=== PATIENT | female | born 1960 | race Caucasian/White ===

== ENCOUNTER 2019-06-01 14:02 | Emergency (ER) | payer SELFPAY ==
--- NOTE | 2019-06-01 14:40 | ER Document Report ---
HPI - HPI Patient complains to provider of: L knee swelling/pain Time Seen by Provider: 06/01/19 14:25 Pain Level: 3 Context: 58-year-old female with hypertension presents to the emergency department with chief complaint of left knee swelling x4 weeks. Patient states that she has history of arthritis and she attributed it to that but the swelling has not subsided with conservative measures like rest, ice, compression, elevation, and taking aspirin. Patient is able to move her knee and can bear weight on it. Patient denies history of recent surgery, prolonged immobilization, posterior pain in the calf, blood clots, cancer, varicose veins, or pitting edema. Denies fevers or chills, nausea or vomiting, acute shortness of breath or chest pain. No other complaints - REPRODUCTIVE Reproductive: DENIES: : - DERM Skin Color: Normal Past Medical History - Social History Smoking Status: Never Smoker Chew tobacco use (# tins/day): No Frequency of alcohol use: Rare Drug Abuse: None Family History: None - adopted but know mom was diabetic, DM Patient has suicidal ideation: No Patient has homicidal ideation: No - Past Medical History Cardiac Medical History: Reports: Hx Hypertension Denies: Hx Coronary Artery Disease Pulmonary Medical History: Denies: Hx Asthma Endocrine Medical History: Denies: Hx Diabetes Mellitus Type 1, Hx Diabetes Mellitus Type 2 Renal/ Medical History: Denies: Hx Kidney Stones, Hx Peritoneal Dialysis GI Medical History: Reports: Hx Diverticulitis, Hx Gastroesophageal Reflux Disease Musculoskeletal Medical History: Reports Hx Musculoskeletal Deformity Past Surgical History: Reports: Hx Abdominal Surgery - diverticulitis, with 6 " of colon removed, Hx Appendectomy - same time as above, Hx Colostomy - and re versal, Hx Tubal Ligation - Immunizations Immunizations up to date: Yes Hx Diphtheria, Pertussis, Tetanus Vaccination: Yes Vertical Provider Document - CONSTITUTIONAL Notes: PHYSICAL EXAMINATION: Reviewed vital signs and charting by RN GENERAL: Alert, interacts well. No acute distress. HEAD: Normocephalic, atraumatic. EYES: Pupils equal and round. Extraocular movements intact. ENT: Oral mucosa moist, tongue midline. NECK: Full range of motion. Trachea midline. LUNGS: Clear to auscultation bilaterally, no wheezes, rales, or rhonchi. No respiratory distress. HEART: Regular rate and rhythm. No murmur ABDOMEN: soft, non-tender. No distention. Bowel sounds present EXTREMITIES: Moves all 4 extremities spontaneously. Mild nonpitting edema of the left knee, tenderness to palpation over the area of the medial meniscus and the medial joint line, no erythema, very mild warmth, 5/5 strength with knee extension and flexion, full range of motion PSYCH: Normal affect, normal mood. SKIN: Warm, dry, normal turgor. No rashes or lesions noted. - INFECTION CONTROL TRAVEL OUTSIDE OF THE [place] IN LAST 30 DAYS: No Course - Re-evaluation Re-evalutation: 06/01/19 14:44 Patient with history of sciatica on her left side most likely compensating on her right side causing inflammation and probable bursitis. Wells score for DVT -2. No evidence of septic arthritis as patient is able to move knee and is afebrile. Plan is to get x-ray of the left knee. Patient initially hypertensive triple over 111 91/115, repeat blood pressure 157/110. Patient with known hypertension but not currently being treated. No evidence of any endorgan damage on clinical exam. 06/01/19 14:45 06/01/19 15:26 X-ray showed mild tricompartmental arthrosis with a small joint effusion, no evidence of fracture dislocation. Will discuss results with patient and [facility]. She is stable for discharge. - Vital Signs Vital signs: Temp Pulse Resp BP Pulse Ox 98.1 F 122 H 18 191/127 H 97 06/01/19 14:09 06/01/19 14:09 06/01/19 14:09 06/01/19 14:09 06/01/19 14:09 Discharge - Discharge Clinical Impression: Knee effusion, right, Arthrosis Condition: Good Disposition: HOME, SELF-CARE Additional Instructions: You are seen in the emergency department this afternoon for a swollen knee. X- ray did not show any patella dislocation, fracture or any other dislocation. Did show a condition called arthrosis which is another name for osteoarthritis. Also had a very small joint effusion which is fluid in the bursa surrounding your knees. For now you can do RICE treatment and take ibuprofen 600 mg every 6 hours and/or Tylenol 1000 mg every 6 hours for pain and inflammation. He can also wear a compression brace that he can buy [id number] to help with some of the swelling. Try not to bear too much weight on it. Please follow-up with the [facility] or reestablish care with Dr. Cunha to follow-up with this. If you develop severe redness, worsening swelling, are unable to move your knee at all, have acute shortness of breath or chest pain, or you have any other concerning symptoms please return to the emergency department.
--- NOTE | 2019-06-01 15:12 | RADIOLOGY REPORT (SQ) ---
EXAM DESCRIPTION: KNEE RIGHT 4 VIEWS COMPLETED DATE/TIME: 06/01/2019 2:51 pm REASON FOR STUDY: swelling COMPARISON: None. NUMBER OF VIEWS: Four views. TECHNIQUE: AP, lateral, and both oblique radiographic images acquired of the right knee. LIMITATIONS: None. FINDINGS: MINERALIZATION: Osteopenia. BONES: No acute fracture or dislocation. No worrisome bone lesions. JOINT: Mild tricompartmental joint space narrowing and osteophytosis. Moderate nonspecific knee join t effusion. SOFT TISSUES: No soft tissue swelling. No radio-opaque foreign body. OTHER: No other significant finding. IMPRESSION: Osteopenia. No fracture dislocation of the right knee. Mild tricompartmental arthrosis . Small nonspecific knee joint effusion. TECHNICAL DOCUMENTATION: JOB ID: [id number] [employer]- All Rights Reserved Reading location - IP/workstation name: [email or web address]
[2019-06-01 15:46] VITALS: BP 158/129
== END 2019-06-01 15:48 | disposition home or self-care (01) ==
LOC: ER 14:02
DX: M17.11 Unilateral primary osteoarthritis, right knee (principal); M25.462 Effusion, left knee; I10 Essential (primary) hypertension
CPT/HCPCS: 99283

== ENCOUNTER 2020-09-13 23:04 | Inpatient (IN) | payer SELFPAY ==
[2020-09-13] MEDS ORDERED: ONDANSETRON HCL INJ/PF 4 MG/2 ML SDV IV ONE (23:22)
--- NOTE | 2020-09-13 23:24 | ER Document Report ---
ED Medical Screen (RME) - General Chief Complaint: Abdominal Pain Stated Complaint: ABDOMINAL PAIN/VOMITING Time Seen by Provider: 09/13/20 23:10 Mode of Arrival: Wheelchair Information source: Patient Notes: 60-year-old female patient with history of multiple abdominal surgeries presenting to the emergency department chief complaint of concern for possible hernia, abdominal pain and vomiting. Patient reports pain to the right side, has become more persistent. She has a large palpable mass to her abdomen. She states this is never been checked out by a physician. She does not have medical insurance so she states she takes no medications. She denies any history of diabetes, hypertension or any other chronic medical condition. She has significantly hypertensive on arrival. Denies any fevers, chills, dysuria. Reports normal bowel movement today. I have greeted and performed a rapid initial assessment of this patient. A comprehensive ED assessment and evaluation of the patient, analysis of test results and completion of the medical decision making process will be conducted by additional ED providers. I have specifically instructed the patient or family members with the patient to immediately return to any nursing staff should anything change in the patient's condition or with their chief complaint. TRAVEL OUTSIDE OF THE [place] IN LAST 30 DAYS: No - Related Data Allergies/Adverse Reactions: lisinopril [Lisinopril] Allergy (Verified 09/13/20 23:14) clonidine [Clonidine] Adverse Reaction (Verified 09/13/20 23:14) Past Medical History - Social History Frequency of alcohol use: Occasional Drug Abuse: None - Past Medical History Cardiac Medical History: Reports: Hx Hypertension Denies: Hx Coronary Artery Disease Pulmonary Medical History: Denies: Hx Asthma Endocrine Medical History: Denies: Hx Diabetes Mellitus Type 1, Hx Diabetes Mellitus Type 2 Renal/ Medical History: Denies: Hx Kidney Stones, Hx Peritoneal Dialysis GI Medical History: Reports: Hx Diverticulitis, Hx Gastroesophageal Reflux Disease Musculoskeltal Medical History: Reports Hx Musculoskeletal Deformity Past Surgical History: Reports: Hx Abdominal Surgery - diverticulitis, with 6 " of colon removed, Hx Appendectomy - same time as above, Hx Colostomy - and reversal, Hx Tubal Ligation - Immunizations Immunizations up to date: Yes Hx Diphtheria, Pertussis, Tetanus Vaccination: Yes Physical Exam - Vital signs Vitals: Temp Pulse Resp BP Pulse Ox 98.3 F 107 H 24 H 219/125 H 100 09/13/20 23:14 09/13/20 23:14 09/13/20 23:14 09/13/20 23:14 09/13/20 23:14 Course - Vital Signs Vital signs: Temp Pulse Resp BP Pulse Ox 98.3 F 107 H 24 H 219/125 H 100 09/13/20 23:14 09/13/20 23:14 09/13/20 23:14 09/13/20 23:14 09/13/20 23:14
[2020-09-13] MEDS ORDERED: ONDANSETRON 4 MG TAB.RAPDIS PO ONE (23:38)
[2020-09-13 23:47] LABS: ABSOLUTE BASOPHILS # (AUTO) 0.1 10^3/uL (0.0-0.2); ABSOLUTE EOSINOPHILS # (AUTO) 0.2 10^3/uL (0.0-0.6); ABSOLUTE LYMPHOCYTES (AUTO) 2.5 10^3/uL (0.5-4.7); ABSOLUTE MONOCYTES (AUTO) 0.7 10^3/uL (0.1-1.4); ABSOLUTE NEUT (AUTO) 8.3 10^3/uL (1.7-8.2); BASOPHILS % (AUTO) 0.5 % (0-2); EOSINOPHILS % (AUTO) 1.6 % (0-6); HEMATOCRIT 42.1 % (36.0-47.0); HEMOGLOBIN 14.4 g/dL (12.0-15.5); LYMPHOCYTES % (AUTO) 21.4 % (13-45); MEAN CORPUSCULAR HEMOGLOBIN 28.2 pg (27.0-33.4); MEAN CORPUSCULAR HGB CONC 34.3 g/dL (32.0-36.0); MEAN CORPUSCULAR VOLUME 82 fl (80-97); MONOCYTES % (AUTO) 6.1 % (3-13); PLATELET COUNT 313 10^3/uL (150-450); RED BLOOD COUNT 5.12 10^6/uL (3.72-5.28); RED CELL DISTRIBUTION WIDTH 13.1 % (11.5-14.0); SEGMENTED NEUTROPHILS % (AUTO) 70.4 % (42-78); TOTAL CELLS COUNTED % (AUTO) 100 %; WHITE BLOOD COUNT 11.8 10^3/uL (4.0-10.5)
[2020-09-14 00:10] LABS: ALBUMIN 4.3 g/dL (3.5-5.0); ALKALINE PHOSPHATASE 178 U/L (38-126); ANION GAP 12 (5-19); ASPARTATE AMINO TRANSFERASE 16 U/L (14-36); BILIRUBIN,DIRECT 0.1 mg/dL (0.0-0.4); BILIRUBIN,TOTAL 0.4 mg/dL (0.2-1.3); BLOOD UREA NITROGEN 15 mg/dL (7-20); CALCIUM 9.8 mg/dL (8.4-10.2); CARBON DIOXIDE 24 mmol/L (22-30); CHLORIDE 98 mmol/L (98-107); GLUCOSE 332 mg/dL (75-110); POTASSIUM 4.4 mmol/L (3.6-5.0); TOTAL PROTEIN 7.2 g/dL (6.3-8.2)
[2020-09-14 00:54] LABS: APPEARANCE,URINE CLEAR; BILIRUBIN,URINE NEGATIVE (NEGATIVE); COLOR,URINE YELLOW; GLUCOSE, URINE >=500 mg/dL (NEGATIVE); KETONES,URINE NEGATIVE (NEGATIVE); LEUKOCYTE ESTERASE,URINE TRACE (NEGATIVE); NITRITE,URINE NEGATIVE (NEGATIVE); PROTEIN,URINE 30 mg/dL (NEGATIVE); URINE SPECIFIC GRAVITY 1.017; UROBILINOGEN,URINE NEGATIVE mg/dL (<2.0)
[2020-09-14] MEDS ORDERED: RINGERS SOLUTION,LACTATED 1,000 ML IV ONE (01:08)
[2020-09-14] MEDS ORDERED: MORPHINE SULFATE 10 MG/ML INJ IV ONE ×3 (01:42→08:04)
--- NOTE | 2020-09-14 02:06 | RADIOLOGY REPORT (SQ) ---
CT abdomen and pelvis with contrast on 09/14/2020 1:25 AM CLINICAL INDICATION: Right upper quadrant and right lower quadrant pain, vomiting TECHNIQUE: Multiple axial images are obtained throughout the abdomen and pelvis following the administration of IV contrast, 80 mL of Omnipaque 350contrast was administered intravenously without complication. This exam was performed according to our departmental dose-optimization program, which includes automated exposure control, adjustment of the mA and/or kV according to patient size and/or use of iterative reconstruction technique. Total DLP is 1589.76 mGy*cm. COMPARISON: None FINDINGS: Abdomen: The lung bases are clear. There is mild fatty infiltration of the liver. Gallstone is noted in the gallbladder. Solid abdominal organs are otherwise unremarkable. There is no abdominal adenopathy. There are right greater than left anterior abdominal wall hernias at or above the level of the umbilicus with the largest being a right supraumbilical anterior abdominal wall hernia containing multiple loops of bowel. The other hernias are smaller and predominantly contain only fat . There is one midline supraumbilical anterior abdominal wall hernia that contains a small portion of nonobstructed transverse colon. The largest right-sided anterior abdominal wall hernia that contains bowel has associated fluid and stranding within the mesentery within the hernia and within the anterior abdomen adjacent to the hernia. The fluid and mesenteric edema raises the question of early incarceration or strangulation of this hernia. There is mildly dilated fluid-filled loop of small bowel within the abdomen that extends out of the hernia at two locations with narrowing of the bowel extending into and out of the hernia adjacent to one another at two adjacent locations consistent with developing partial closed loop obstruction related to this hernia. Would recommend surgical consultation. The area of small bowel narrowing is seen well on coronal images 18 through 29 of the two adjacent loops of bowel with the dilated small bowel within the abdomen related to this seen well on coronal images 30 through 41 of series 601. Pelvis: There is diverticulosis. The patient is status post sigmoid colon resection with primary anastomosis in the pelvis. There is no free fluid in the pelvis. Pelvic organs appear unremarkable by CT. There is no pelvic adenopathy. Pelvic portion of the GI tract is otherwise unremarkable. Degenerative changes are noted in the spine. IMPRESSION: 1. Multiple anterior abdominal wall hernias with the largest being a right supraumbilical anterior abdominal wall hernia. There are some mildly dilated fluid-filled loops of small bowel extending into and out of this hernia with narrowing at adjacent points suggesting developing closed loop obstruction related to this hernia. The fluid and edema within the mesentery associated with this hernia also is worrisome for early incarceration or strangulation of the hernia. Recommend surgical consultation. Dr. Pickard was made aware of this finding and recommendation by myself by phone on 09/14/2020 at 2:02 AM eastern time. 2. Diverticulosis. 3. Cholelithiasis.
[2020-09-14] MEDS ORDERED: LABETALOL HCL INJ 20 MG/4 ML DISP.SYRIN IV ONE ×3 (02:13→14:36)
--- NOTE | 2020-09-14 02:17 | ER Document Report ---
ED General - General Mode of Arrival: Wheelchair TRAVEL OUTSIDE OF THE [place] IN LAST 30 DAYS: No <COLLETTE MAGALLANES - Last Filed: 09/14/20 06:23> <ZOYA ESPNIOSA - Last Filed: 09/14/20 10:41> - General Chief Complaint: Abdominal Pain Stated Complaint: ABDOMINAL PAIN/VOMITING Time Seen by Provider: 09/13/20 23:10 Notes: 60-year-old female history of distant laparotomy for perforated diverticulitis, appendectomy, hypertension presents with few days of worsening abdominal pain with abdominal mass associated with 1 day of vomiting. Patient says that she had 2 loose stools early on day of presentation and was passing gas at that time but not for the past approximately 8 hours. Patient has had several episodes of vomiting worsened in the ED. Patient denies any fever, hemoptysis, dizziness, syncope, chest pain, prior obstruction, shortness of breath, chest pain. Patient not on antihypertensives because she has not had insurance recently. (COLLETTE MAGALLANES) - Related Data Allergies/Adverse Reactions: lisinopril [Lisinopril] Allergy (Verified 09/13/20 23:14) clonidine [Clonidine] Adverse Reaction (Verified 09/13/20 23:14) Past Medical History - General Information source: Patient - Social History Smoking Status: Former Smoker Frequency of alcohol use: Occasional Drug Abuse: None Family History: None - adopted but know mom was diabetic, DM - Past Medical History Cardiac Medical History: Reports: Hx Hypertension Denies: Hx Coronary Artery Disease Pulmonary Medical History: Denies: Hx Asthma Endocrine Medical History: Denies: Hx Diabetes Mellitus Type 1, Hx Diabetes Mellitus Type 2 Renal/ Medical History: Denies: Hx Kidney Stones, Hx Peritoneal Dialysis GI Medical History: Reports: Hx Diverticulitis, Hx Gastroesophageal Reflux Disease Musculoskeletal Medical History: Reports Hx Musculoskeletal Deformity Past Surgical History: Reports: Hx Abdominal Surgery - diverticulitis, with 6 " of colon removed, Hx Appendectomy - same time as above, Hx Colostomy - and reversal, Hx Tubal Ligation - Immunizations Immunizations up to date: Yes Hx Diphtheria, Pertussis, Tetanus Vaccination: Yes <COLLETTE MAGALLANES - Last Filed: 09/14/20 06:23> Review of Systems <COLLETTE MAGALLANES - Last Filed: 09/14/20 06:23> - Review of Systems Notes: REVIEW OF SYSTEMS: CONSTITUTIONAL : Denies fever, chills, or sweats. EENT: Denies recent cold/sinus symptoms, denies throat pain CARDIOVASCULAR: Denies chest pain, CHELSIE RESPIRATORY: Denies cough, denies shortness of breath. GASTROINTESTINAL: + abdominal pain, +nausea/vomiting. GENITOURINARY: Denies difficulty urinating, painful urination. FEMALE GENITOURINARY: Denies abnormal vaginal bleeding, vaginal discharge. MUSCULOSKELETAL: Denies neck pain, back pain. SKIN: Denies rash or skin lesions. HEMATOLOGIC : Denies easy bruising or bleeding. LYMPHATIC: Denies swollen, enlarged glands. NEUROLOGICAL: Denies headache, denies change in gait. PSYCHIATRIC: Denies anxiety or stress or depression. (COLLETTE MAGALLANES) Physical Exam <COLLETTE MAGALLANES - Last Filed: 09/14/20 06:23> - Vital signs Vitals: Temp Pulse Resp BP Pulse Ox 98.3 F 107 H 24 H 219/125 H 100 09/13/20 23:14 09/13/20 23:14 09/13/20 23:14 09/13/20 23:14 09/13/20 23:14 - Notes Notes: PHYSICAL EXAMINATION: GENERAL: Well-appearing, well-nourished and in no acute distress. HEAD: Atraumatic, normocephalic. EYES: Pupils equal round and appropriate constriction, sclera anicteric, conjunctiva are normal. ENT: nares patent, dry mucous membranes. NECK: Normal range of motion, supple without lymphadenopathy LUNGS: Breath sounds clear to auscultation bilaterally and equal. No wheezes rales or rhonchi. HEART: Mildly tachycardic with regular rhythm, no murmurs ABDOMEN: Nontender healed laparotomy incision, large tender right lower quadrant abdominal mass with bowel sounds, partially reducible, no overlying skin changes, not tense EXTREMITIES: Normal range of motion, no pitting or edema. No cyanosis. NEUROLOGICAL: Awake, alert, conversing appropriately, moves all extremities spontaneously. PSYCH: Normal mood, normal affect. SKIN: Warm, Dry, normal turgor, no rashes or lesions noted. (COLLETTE MAGALLANES) Course - Laboratory Result Diagrams: 09/13/20 23:30 11/02/20 23:30 <COLLETTE MAGALLANES - Last Filed: 09/14/20 06:23> - Laboratory Result Diagrams: 09/13/20 23:30 09/13/20 23:30 <ZOYA ESPINOSA - Last Filed: 09/14/20 10:41> - Re-evaluation Re-evalutation: 09/14/20 02:41 Abdominal wall hernia, rule out incarcerated hernia/strangulated hernia, obstruction. Patient mildly tachycardic with dry mucosa, says "I might have diabetes". Rule out new onset diabetes, no signs of DKA but will assess anion gap. Fluid bolus, CT, pain and nausea control. Received read from radiologist that patient has likely incarcerated hernia and called Dr. Alcantara who requests a CT with p.o. contrast which is ordered. 09/14/20 05:[address] Alcantara and alerted him to CT read on CT abdomen pelvis with p.o. contrast 09/14/20 06:[address] Alcantara to see if he had been able to see patient, says he is rounding on patients on floor and cannot see patient yet. Turned care over to Dr. Espinosa pending Dr. Alcantara's evaluation. Patient's repeat exam remains stable, patient's pain is controlled and she says it is a 2 out of 10 currently, no additional episodes of vomiting. Have ordered NG tube and fingerstick. (COLLETTE MAGALLANES) 09/14/20 10:38 Patient was seen by Dr. Mcgrath from the surgical service and he feels that the patient will need to go to the OR for surgical treatment of her hernia. He will be admitting. He has requested consultation from the hospitalist. In the meantime I have given the patient some additional labetalol for her blood pressure also a dose of subcu insulin for her blood sugar. (ZOYA ESPINOSA) - Vital Signs Vital signs: Temp Pulse Resp BP Pulse Ox 98.1 F 93 16 196/106 H 100 09/14/20 03:42 09/14/20 02:38 09/14/20 10:01 09/14/20 10:01 09/14/20 10:01 - Laboratory Laboratory results interpreted by me: 11/02/20 11/02/20 11/03/20 23:30 23:30 00:40 WBC 11.8 H Absolute Neuts (auto) 8.3 H Sodium 133.5 L Glucose 332 H POC Glucose Alkaline Phosphatase 178 H Urine Protein 30 H Urine Glucose (UA) >=500 H Ur Leukocyte Esterase TRACE H 09/14/20 09/14/20 06:54 09:59 WBC Absolute Neuts (auto) Sodium Glucose POC Glucose 282 H 277 H Alkaline Phosphatase Urine Protein Urine Glucose (UA) Ur Leukocyte Esterase Discharge <COLLETTE MAGALLANES - Last Filed: 09/14/20 06:23> - Discharge Admitting Provider: Surgicalist Unit Admitted: OR <ZOYA ESPINOSA - Last Filed: 09/14/20 10:41> - Discharge Clinical Impression: SBO secondary to incarcerated hernia Condition: Good Disposition: ADMITTED INPATIENT
[2020-09-14] MEDS ORDERED: INSULIN LISPRO 100 UNIT/ML 3 ML VIAL SUBCUT ONE (03:45)
--- NOTE | 2020-09-14 05:32 | RADIOLOGY REPORT (SQ) ---
CT abdomen and pelvis without contrast on 09/14/2020 at 4:55 AM CLINICAL INDICATION: Vomiting, right upper quadrant and right lower quadrant pain, evaluate obstruction TECHNIQUE: Multiple axial images are obtained throughout the abdomen and pelvis without the administration of IV contrast, oral contrast was administered. This exam was performed according to our departmental dose-optimization program, which includes automated exposure control, adjustment of the mA and/or kV according to patient size and/or use of iterative reconstruction technique. Total DLP is 885.05 mGy*cm. COMPARISON: 09/14/2020 at 1:25 AM FINDINGS: Abdomen: There is minimal basilar atelectasis. There is a small amount of oral contrast in the stomach but no oral contrast extends into the duodenum or small bowel. The patient unfortunately was only able to drink portion of the oral contrast and vomited after drinking the contrast. Gallstone is again noted in the gallbladder. The unenhanced solid abdominal organs are otherwise unremarkable. There is no abdominal adenopathy. There is diverticulosis. There are again noted multiple anterior abdominal wall hernias with the largest to the right of midline and above the level of the umbilicus again containing multiple loops of bowel. There remains extensive edema and stranding within the mesentery within the hernia and adjacent to the hernia. There remains a loop of small bowel that is narrowed extending into and out of this hernia with worsening associated mesenteric edema. The degree of fluid distention of the bowel is improved but still favor this to represent closed loop obstruction based upon the small bowel narrowing at two points adjacent to one another entering the hernia with edema in the small bowel mesentery related to this loop of bowel. Again with the stranding and edema within the hernia this could also be related to component of incarceration or strangulation within the hernia. Again would recommend surgical consultation. One of the other hernias contains nonobstructed portion of the transverse colon with the other hernias containing only fat. There is diverticulosis. Pelvis: No free fluid is noted in the pelvis. There is no pelvic adenopathy. Pelvic portion of the GI tract is otherwise unremarkable. Degenerative changes are noted in the spine. IMPRESSION: 1. Oral contrast on this examination is essentially noncontributory as only a small amount of oral contrast is noted in the stomach. There has been some decrease in fluid distention of loop of small bowel in the midabdomen but there is worsening edema within the small bowel mesentery associated with this loop of small bowel. Still favor component of a closed loop obstruction and possibly incarceration or strangulation related to the patient's right-sided anterior abdominal wall hernia. Again would recommend surgical consultation. 2. Otherwise stable exam.
[2020-09-14] MEDS ORDERED: LIDOCAINE 2% INJ-PF (20 MG/ML) 10 ML AMPUL NEB ONE (06:24)
--- NOTE | 2020-09-14 07:46 | PDOC H&P ---
History of Present Illness Patient complains of: Abdominal pain, ventral hernia, nausea and vomiting History of Present Illness: KAJAL TAMEZ is a 60 year old female with a 1 day history of nausea, vomiting, and abdominal pain. She has never had symptoms similar to this. She has had a previous lower midline laparotomy and colectomy. Her hernia developed after this surgery. Her hernia has been present for many years, but has never caused her symptoms similar to what she is experiencing today. She rates her pain as 10 out of 10. It is worse with palpation and movement. She denies hematemesis, CP, SOB, headache, dizziness, orthostasis, blurry vision, melena, hematochezia, hematemesis. She denies a history of diabetes. She does report a h/o hypertension, but does not take any medications. Past Medical History Cardiac Medical History: Reports: Hypertension Denies: Coronary Artery Disease Pulmonary Medical History: Denies: Asthma Endocrine Medical History: Reports: Diabetes Mellitus Type 2 Denies: Diabetes Mellitus Type 1 GI Medical History: Reports: Diverticulitis, Gastroesophageal Reflux Disease Past Surgical History Past Surgical History: Reports: Appendectomy - same time as above, Colostomy - and reversal, Tubal Ligation Social History Smoking Status: Former Smoker Frequency of Alcohol Use: Occasional Hx Recreational Drug Use: No Hx Prescription Drug Abuse: No Family History Family History: None - adopted but know mom was diabetic, DM Parental Family History Reviewed: Yes Children Family History Reviewed: Yes Sibling(s) Family History Reviewed.: Yes Medication/Allergy Home Medications: Lisinopril/Hydrochlorothiazide [Zestoretic 20-25 Mg Tablet] 1 each PO DAILY 09/23/12 Cyclobenzaprine HCl [Flexeril 10 mg Tablet] 10 mg PO TID 12/13/13 Famotidine [Pepcid 20 mg Tablet] 20 mg PO BID #12 tablet 12/13/13 Hydroxyzine HCl [Atarax 25 mg Tablet] 1 tab PO QID PRN #25 tablet 12/13/13 Prednisone [Deltasone 20 mg Tablet] 3 tab PO DAILY 5 Days tablet 12/13/13 Metoclopramide HCl [Reglan 10 mg Tablet] 1 - 2 tab PO ASDIR PRN #25 tablet 12/17/15 Oxycodone HCl/Acetaminophen [Percocet 5-325 mg Tablet] 1 - 2 tab PO ASDIR PRN #25 tablet 12/17/15 Allergies/Adverse Reactions: lisinopril [Lisinopril] Allergy (Verified 09/13/20 23:14) clonidine [Clonidine] Adverse Reaction (Verified 09/13/20 23:14) Review of Systems Constitutional: PRESENT: anorexia. ABSENT: chills, fatigue, fever(s), weakness Eyes: ABSENT: visual disturbances Ears: ABSENT: hearing changes Nose, Mouth, and Throat: ABSENT: sore throat Cardiovascular: ABSENT: chest pain Respiratory: ABSENT: cough Gastrointestinal: PRESENT: abdominal pain, bloating, nausea, vomiting. ABSENT: hematemesis, hematochezia, melena Genitourinary: ABSENT: dysuria Musculoskeletal: ABSENT: back pain Integumentary: ABSENT: pruritus, rash Neurological: ABSENT: confusion, convulsions, dizziness Psychiatric: ABSENT: anxiety, depression Endocrine: ABSENT: cold intolerance, heat intolerance Hematologic/Lymphatic: ABSENT: easy bleeding, easy bruising Physical Exam Vital Signs: Temp Pulse Resp BP Pulse Ox 98.1 F 93 20 164/96 H 99 09/14/20 03:42 09/14/20 02:38 09/14/20 07:01 09/14/20 06:01 09/14/20 06:01 Intake & Output 09/13/20 09/14/20 09/15/20 06:59 06:59 06:59 Intake Total 1000 Output Total 400 Balance 1000 -400 Weight 95.1 kg General appearance: PRESENT: cooperative, disheveled, obese Head exam: PRESENT: atraumatic, normocephalic Eye exam: PRESENT: EOMI, PERRLA. ABSENT: scleral icterus Mouth exam: PRESENT: moist, neck supple Neck exam: ABSENT: meningismus, tenderness, thyromegaly, tracheal deviation Respiratory exam: PRESENT: unlabored. ABSENT: tachypnea, wheezes Cardiovascular exam: ABSENT: tachycardia GI/Abdominal exam: PRESENT: hernia - lower midline ventral hernia. Non-reduci ble., soft, tenderness - overlying large ventral hernia Rectal exam: PRESENT: deferred Extremities exam: ABSENT: clubbing Musculoskeletal exam: ABSENT: deformity Neurological exam: PRESENT: alert, awake, oriented to person, oriented to place, oriented to time, oriented to situation, CN II-XII grossly intact Psychiatric exam: PRESENT: agitated Focused psych exam: ABSENT: delusional Skin exam: ABSENT: cyanosis, erythema, jaundice Results Laboratory Results: 09/13/20 23:30 09/13/20 23:30 09/13/20 09/13/20 09/14/20 23:30 23:30 00:40 WBC 11.8 H RBC 5.12 Hgb 14.4 Hct 42.1 MCV 82 MCH 28.2 MCHC 34.3 RDW 13.1 Plt Count 313 Seg Neutrophils % 70.4 Sodium 133.5 L Potassium 4.4 Chloride 98 Carbon Dioxide 24 Anion Gap 12 BUN 15 Creatinine 0.72 Est GFR ( Amer) > 60 Glucose 332 H Calcium 9.8 Total Bilirubin 0.4 AST 16 Alkaline Phosphatase 178 H Total Protein 7.2 Albumin 4.3 Lipase 66.1 Urine Color YELLOW Urine Appearance CLEAR Urine pH 7.0 Ur Specific [place] 1.017 Urine Protein 30 H Urine Glucose (UA) >=500 H Urine Ketones NEGATIVE Urine Blood NEGATIVE Urine Nitrite NEGATIVE Ur Leukocyte Esterase TRACE H Urine WBC (Auto) 2 Urine RBC (Auto) 0 Impressions: Abdomen/Pelvis CT 09/14/20 02:10 IMPRESSION: 1. Oral contrast on this examination is essentially noncontributory as only a small amount of oral contrast is noted in the stomach. There has been some decrease in fluid distention of loop of small bowel in the midabdomen but there is worsening edema within the small bowel mesentery associated with this loop of small bowel. Still favor component of a closed loop obstruction and possibly incarceration or strangulation related to the patient's right-sided anterior abdominal wall hernia. Again would recommend surgical consultation. 2. Otherwise stable exam. Assessment & Plan - Diagnosis (1) Hernia, ventral, with obstruction Is this a current diagnosis for this admission?: Yes - Time Anticipated Discharge Disposition: Home, Self Care Anticipated Discharge Timeframe: unknown - Plan Summary Plan Summary: 60 y/o F with a large ventral hernia. It is non-reducible. There is evidence of obstruction on CT scan. I have discussed options with the patient at length. She will likely require operative intervention to relieve her obstructive symptoms. Dr. Mcgrath, the oncoming surgicalist, will evaluate her and devise a plan moving forward. She has blood glucose levels of >300. She reports that she is "not diabetic" and that she does not take any medications at home. Will consult the hospitalist for medical management.
[2020-09-14] MEDS ORDERED: METOCLOPRAMIDE HCL INJ/PF 10 MG/2 ML SDV IV ONE (08:05)
[2020-09-14] MEDS ORDERED: INSULIN REG, HUMAN 100 UNIT/ML 3 ML VIAL (PYX) SUBCUT ONE (09:44)
[2020-09-14] MEDS ORDERED: DEXTROSE 40% GEL 15 GM TUBE X 2 PO PRN (13:00)
[2020-09-14] MEDS ORDERED: DEXTROSE 50%-WATER SYRINGE 25 GM/50 ML DOSE IV PRN (13:00)
[2020-09-14] MEDS ORDERED: GLUCAGON,HUMAN RECOMB 1 MG INJ IM PRN (13:00)
[2020-09-14] MEDS ORDERED: DEXTROSE 50%-WATER SYRINGE 12.5 GM/25 ML DOSE IV PRN (13:00)
[2020-09-14] MEDS ORDERED: DEXTROSE 40% GEL 15 GM TUBE PO PRN (13:00)
[2020-09-14] MEDS ORDERED: SUCCINYLCHOLINE CHLORIDE INJ 200 MG/10 ML VIAL ONE (14:33)
[2020-09-14] MEDS ORDERED: ROCURONIUM BROMIDE INJ 50 MG/5 ML VIAL IV ONE (14:33)
[2020-09-14] MEDS: INSULIN LISPRO 100 UNIT/ML 3 ML VIAL SUBCUT SCH ×2 (17:07→22:28)
[2020-09-14] MEDS ORDERED: DEXAMETHASONE SOD PHOSPHATE INJ 4 MG/1 ML VIAL ONE (18:01)
[2020-09-14] MEDS ORDERED: ONDANSETRON HCL INJ/PF 4 MG/2 ML SDV ONE (18:01)
[2020-09-14] MEDS ORDERED: SUGAMMADEX SODIUM 200 MG/2 ML SDV IV ONE (18:01)
[2020-09-14] MEDS ORDERED: MIDAZOLAM 2 MG/2 ML INJ ONE (18:01)
[2020-09-14] MEDS ORDERED: FENTANYL CITRATE INJ/PF 100 MCG/2 ML AMPUL ONE (18:01)
[2020-09-14] MEDS ORDERED: PROPOFOL INJ 200 MG/20 ML VIAL IV ONE ×2 (18:01→20:58)
[2020-09-14] MEDS ORDERED: LIDOCAINE 0.5% INJ-PF (5 MG/ML) 50 ML SDV ONE (18:02)
[2020-09-14] MEDS ORDERED: ALBUTEROL SULFATE 0.083% NEB 2.5 MG/3 ML AMPUL NEB PRN (18:25)
--- NOTE | 2020-09-14 18:25 | PDOC CONSULTATION ---
Consultation Consult Date: 09/14/20 Attending physician:: WILLIE NAGY Provider Consulted: DELISA MCINTOSH Consult reason:: BP and DM management History of Present Illness Admission Date/PCP: 09/14/20 10:44 History of Present Illness: KAJAL TAMEZ is a 60 year old female with past medical history significant for HTN, T2DM, asthma, perforated colon status post partial colectomy then takedown who presents with a 2-day history of progressive severe abdominal pain with nausea and vomiting. Patient has not followed with a physician regularly in many years she states. She has not had any medications at home reportedly. Patient is admitted to the general surgery service for incarcerated ventral hernia. Patient's blood pressure significantly elevated with systolics in the 180s on admission. According to patient, she is extremely allergic to LENNOX inhibitor's including lisinopril and she experienced angioedema from this in the past. Patient also states she is unable to tolerate clonidine in any form due to causing her to have whole body pain the last time she was given it. We are very limited in her blood pressure control but I have ordered as needed IV labetalol as well as scheduled IV Lasix. We are unable to use a clonidine patch or captopril IV due to aforementioned allergy/intolerance to these meds. Patient need to be started on aggressive oral blood pressure management once he is cleared to take medications by mouth by general surgery. Blood sugars also uncontrolled and I have started her on sliding scale insulin and Accu-Cheks. Patient agrees that benefits outweigh the risks of proceeding with surgery. Past Medical History Cardiac Medical History: Reports: Hypertension Denies: Coronary Artery Disease Pulmonary Medical History: Reports: Asthma Endocrine Medical History: Reports: Diabetes Mellitus Type 2 Denies: Diabetes Mellitus Type 1 GI Medical History: Reports: Diverticulitis, Gastroesophageal Reflux Disease Psychiatric Medical History: Denies: Depression Past Surgical History Past Surgical History: Reports: Appendectomy - same time as above, Colostomy - and reversal, Tubal Ligation Social History Information Source: Patient, Emergency Med Personnel Lives with: Family Smoking Status: Never Smoker Frequency of Alcohol Use: Occasional Hx Recreational Drug Use: No Hx Prescription Drug Abuse: No - Advance Directive Resuscitation Status: Full Code Surrogate healthcare decision maker:: Admitting diagnosis: Incarcerated ventral hernia All aspects of code status discussed with patient/POA including cardioversion, chest compressions, and intubation and the patient/POA indicated they wish to be full code MPOA is designated as: Adrianoli Castillo Time spent: Greater than 16 minutes Family History Family History: None - adopted but know mom was diabetic, DM Parental Family History Reviewed: Yes Children Family History Reviewed: Yes Sibling(s) Family History Reviewed.: Yes Medication/Allergy Home Medications: No Home Medications 09/14/20 Allergies/Adverse Reactions: lisinopril [Lisinopril] Allergy (Verified 09/13/20 23:14) clonidine [Clonidine] Adverse Reaction (Verified 09/13/20 23:14) Review of Systems All systems: reviewed and no additional remarkable complaints except as stated - Per HPI otherwise negative Physical Exam Vital Signs: Temp Pulse Resp BP Pulse Ox 97.6 F 81 18 185/102 H 100 09/14/20 15:20 09/14/20 15:20 09/14/20 15:20 09/14/20 15:20 09/14/20 15:20 Intake & Output 09/13/20 09/14/20 09/15/20 06:59 06:59 06:59 Intake Total 1000 Output Total 400 Balance 1000 -400 Weight 95.1 kg 98.2 kg Exam: General appearance: PRESENT: no acute distress, well-developed, well-nourished, morbidly obese with BMI of 36 Head exam: PRESENT: atraumatic, normocephalic Eye exam: PRESENT: conjunctiva pink. ABSENT: scleral icterus Mouth exam: PRESENT: moist Respiratory exam: PRESENT: clear to auscultation tiffanie. ABSENT: rales, rhonchi, wheezes Cardiovascular exam: PRESENT: RRR. ABSENT: diastolic murmur, rubs, systolic murmur GI/Abdominal exam: PRESENT: normal bowel sounds, soft. Large ventral hernia notably distended with mild to moderate tenderness; absent: Guarding, mass, organolmegaly, rebound Neurological exam: PRESENT: alert, awake, oriented to person, oriented to place, oriented to time, oriented to situation Psychiatric exam: PRESENT: appropriate affect, normal mood Skin exam: PRESENT: dry, intact, warm Results Laboratory Results: 09/13/20 23:30 09/13/20 23:30 09/13/20 09/13/20 09/14/20 23:30 23:30 00:40 WBC 11.8 H RBC 5.12 Hgb 14.4 Hct 42.1 MCV 82 MCH 28.2 MCHC 34.3 RDW 13.1 Plt Count 313 Seg Neutrophils % 70.4 Sodium 133.5 L Potassium 4.4 Chloride 98 Carbon Dioxide 24 Anion Gap 12 BUN 15 Creatinine 0.72 Est GFR ( Amer) > 60 Glucose 332 H Calcium 9.8 Total Bilirubin 0.4 AST 16 Alkaline Phosphatase 178 H Total Protein 7.2 Albumin 4.3 Lipase 66.1 Urine Color YELLOW Urine Appearance CLEAR Urine pH 7.0 Ur Specific [place] 1.017 Urine Protein 30 H Urine Glucose (UA) >=500 H Urine Ketones NEGATIVE Urine Blood NEGATIVE Urine Nitrite NEGATIVE Ur Leukocyte Esterase TRACE H Urine WBC (Auto) 2 Urine RBC (Auto) 0 Impressions: Abdomen/Pelvis CT 09/14/20 02:10 IMPRESSION: 1. Oral contrast on this examination is essentially noncontributory as only a small amount of oral contrast is noted in the stomach. There has been some decrease in fluid distention of loop of small bowel in the midabdomen but there is worsening edema within the small bowel mesentery associated with this loop of small bowel. Still favor component of a closed loop obstruction and possibly incarceration or strangulation related to the patient's right-sided anterior abdominal wall hernia. Again would recommend surgical consultation. 2. Otherwise stable exam. Assessment and Plan - Diagnosis (1) Hernia, ventral, with obstruction Is this a current diagnosis for this admission?: Yes Plan: Seen on CT abdomen/pelvis General surgery is the primary admitting service OR planned on 09/14 Nausea/vomiting/abdominal pain on admission Pain management (2) HTN (hypertension) Is this a current diagnosis for this admission?: Yes Plan: Not any medications prior to admission Start IV labetalol as needed as well as scheduled IV Lasix for BP management Patient is allergic to LENNOX inhibitors which cause angioedema as well as clonidine which causes whole body pain reportedly Plan to start aggressive oral BP management once patient is no longer n.p.o. (3) T2DM (type 2 diabetes mellitus) Qualifiers: Diabetes mellitus extermination supervisor insulin use: without extermination supervisor use Diabetes mellitus complication status: without complication Qualified Code(s): E11.9 - Type 2 diabetes mellitus without complications Is this a current diagnosis for this admission?: Yes Plan: Lang scale insulin, Accu-Cheks A1c (4) History of partial colectomy Is this a current diagnosis for this admission?: Yes Plan: Status post partial colectomy for perforated colon, later had takedown of colostomy (5) Asthma Qualifiers: Asthma severity: mild Asthma persistence: intermittent Asthma complication type: uncomplicated Qualified Code(s): J45.20 - Mild intermittent asthma, uncomplicated Is this a current diagnosis for this admission?: Yes Plan: Uses albuterol intermittently Stable (6) History of angioedema Is this a current diagnosis for this admission?: Yes Plan: Due to LENNOX inhibitor - Time Time Spent with patient: 35 or more minutes Medications reviewed and adjusted accordingly: Yes Anticipated Discharge Disposition: Home, Self Care Anticipated Discharge Timeframe: within 72 hours - Inpatient Certification Medical Necessity: Need for Surgery
[2020-09-14] MEDS ORDERED: MORPHINE SULFATE 10 MG/ML INJ ONE (18:48)
[2020-09-14] MEDS ORDERED: CEFAZOLIN INJ 1 GM VIAL ONE (18:56)
[2020-09-14] MEDS ORDERED: DIPHENHYDRAMINE HCL 50 MG/ML VIAL IV PRN (20:57)
[2020-09-14] MEDS ORDERED: OXYCODONE-ACETAMINOPHEN 5-325 MG TABLET PO PRN ×2 (20:57)
[2020-09-14] MEDS ORDERED: ONDANSETRON HCL INJ/PF 4 MG/2 ML SDV IV PRN (20:57)
[2020-09-14] MEDS ORDERED: FENTANYL CITRATE INJ/PF 100 MCG/2 ML AMPUL IV PRN ×3 (20:57)
[2020-09-14] MEDS ORDERED: MORPHINE SULFATE 10 MG/ML INJ IV PRN (20:57)
[2020-09-14] MEDS ORDERED: MEPERIDINE HCL/PF INJ 25 MG/1 ML DISP.SYRIN IV PRN (20:57)
[2020-09-14] MEDS ORDERED: PROMETHAZINE HCL INJ 25 MG/1 ML VIAL IV PRN (20:57)
--- NOTE | 2020-09-14 21:01 | Operative Report ---
Operative Report DATE OF SURGERY: 09/14/20 PREOPERATIVE DIAGNOSIS: Incarcerated ventral hernias POSTOPERATIVE DIAGNOSIS: The same OPERATION: Reduction of incarcerated ventral hernia, lysis of adhesions, primary repair of ventral hernia, placement of onlay Bio A [place]-Lon graft. SURGEON: JACKI FUNEZ BRILLIANDEER LOPPER: TIMO MORRIS ANESTHESIA: GA TISSUE REMOVED OR ALTERED: Hernia sac COMPLICATIONS: None ESTIMATED BLOOD LOSS: 100 cc QUANTITATIVE BLOOD LOSS: 100 INTRAOPERATIVE FINDINGS: Large ventral hernia about 12 cm x 10 cm with smaller surrounding hernias that were opened up and made as one large hernia. The ventral hernia was reduced immediately after induction of anesthesia. There were a lot of adhesions primary omental adhesions surrounding the hernias. PROCEDURE: After adequate general anesthesia patient was placed in supine position and the abdomen prepped and draped in the usual sterile fashion. Appropriate timeout was then called. Next the hernia was then reduced after induction of general anesthesia. A transverse incision was then made from the mid midline scar towards lateral just above the iliac bone. The hernia sac was then bluntly dissected down to the fascia. Use of the cautery was also used down to by sac and also to control hemostasis. The base of the hernia sac was then opened into the fascial edge. There were some adhesions with primarily omental adhesions. Further dissection of the fascia anteriorly was done and also dissected beneath the peritoneum encountering a lot of adhesions that were subsequently lysed with cautery and Summer clamp and divided and subsequently ligated with 0 Vicryl ties. There were other hernias with loop bowel that were reduced. The final hernia dimension was about 12 cm transversely and about 8 cm vertically. The hernia was primarily repaired with [id number] suture using #2 Vicryl sutures. The subcutaneous area was then irrigated with saline solution. After adequate hemostasis noted a 15 cm x 10 cm Bio A [place]-Lon graft was laid on top of the hernia repair and the edges were sutured to the fascia using #2 Vicryl. A 15 [place] drain was then pulled out through small incision towards the right lower quadrant. The drain was placed on top of the Vicryl mesh. The drain was then anchored to the skin with 2-0 nylon. The skin incision was then closed with matty. Sterile dressings placed over the operative site. Needle instrument sponge counts were all correct. Patient brought to the recovery room extubated in satisfactory condition.
[2020-09-14] MEDS: FUROSEMIDE INJ/PF 20 MG/2 ML SDV IV SCH (22:13)
[2020-09-14] MEDS: DEXTROSE 5%-LACTATED RINGERS 1,000 ML IV PRN (22:29)
[2020-09-14] MEDS: CEFAZOLIN SODIUM 2 GM in DEXTROSE 5%-WATER 100 ML IV SCH (23:52)
[2020-09-15] MEDS ORDERED: CEFAZOLIN 2 GM/D5W RTU 2 GM/50 ML RTUPB IV SCH
[2020-09-15] MEDS: MORPHINE SULFATE 10 MG/ML INJ IV PRN ×3 (02:57→22:38)
[2020-09-15] MEDS: CEFAZOLIN SODIUM 2 GM in DEXTROSE 5%-WATER 100 ML IV SCH ×4 (05:04→23:48)
[2020-09-15] MEDS: DEXTROSE 5%-LACTATED RINGERS 1,000 ML IV PRN ×3 (05:05→22:40)
[2020-09-15 05:25] LABS: HEMATOCRIT 38.9 % (36.0-47.0); HEMOGLOBIN 13.3 g/dL (12.0-15.5); MEAN CORPUSCULAR HEMOGLOBIN 28.3 pg (27.0-33.4); MEAN CORPUSCULAR HGB CONC 34.1 g/dL (32.0-36.0); MEAN CORPUSCULAR VOLUME 83 fl (80-97); PLATELET COUNT 278 10^3/uL (150-450); RED BLOOD COUNT 4.69 10^6/uL (3.72-5.28); RED CELL DISTRIBUTION WIDTH 13.2 % (11.5-14.0); WHITE BLOOD COUNT 16.1 10^3/uL (4.0-10.5)
[2020-09-15 05:45] LABS: BAND NEUTROPHILS % (MANUAL) 1 % (3-5); BASOPHILS % (MANUAL) 0 % (0-2); EOSINOPHILS % (MANUAL) 0 % (0-6); LYMPHOCYTES % (MANUAL) 6 % (13-45); MONOCYTES % (MANUAL) 6 % (3-13); PLATELET COMMENT ADEQUATE; RBC MORPHOLOGY COMMENT NORMO-CYTIC/CHROMIC; SEGMENTED NEUTROPHILS % (MAN) 87 % (42-78); TOTAL CELLS COUNTED 100; TOXIC VACUOLATION PRESENT
[2020-09-15 05:55] LABS: ANION GAP 12 (5-19); BLOOD UREA NITROGEN 17 mg/dL (7-20); CARBON DIOXIDE 25 mmol/L (22-30); CHLORIDE 99 mmol/L (98-107); POTASSIUM 4.2 mmol/L (3.6-5.0)
[2020-09-15 06:11] LABS: GLUCOSE 409 mg/dL (75-110)
[2020-09-15] MEDS: INSULIN LISPRO 100 UNIT/ML 3 ML VIAL SUBCUT SCH ×4 (07:01→21:29)
[2020-09-15] MEDS: FUROSEMIDE INJ/PF 20 MG/2 ML SDV IV SCH (09:22)
[2020-09-15] MEDS ORDERED: INSULIN GLARGINE,HUM.REC.ANLOG 1,000 UNIT/10 ML VIAL SUBCUT SCH (11:00)
--- NOTE | 2020-09-15 17:15 | PDOC PROGRESS REPORT ---
Subjective Subjective:: KAJAL TAMEZ is a 60 year old female with past medical history significant for HTN, T2DM, asthma, perforated colon status post partial colectomy then takedown who presents with a 2-day history of progressive severe abdominal pain with nausea and vomiting. Patient has not followed with a physician regularly in many years she states. She has not had any medications at home reportedly. Patient is admitted to the general surgery service for incarcerated ventral hernia. Patient's blood pressure significantly elevated with systolics in the 180s on admission. According to patient, she is extremely allergic to LENNOX inhibitor's including lisinopril and she experienced angioedema from this in the past. Patient also states she is unable to tolerate clonidine in any form due to causing her to have whole body pain the last time she was given it. We are very limited in her blood pressure control but I have ordered as needed IV labetalol as well as scheduled IV Lasix. We are unable to use a clonidine patch or captopril IV due to aforementioned allergy/intolerance to these meds. Patient need to be started on aggressive oral blood pressure management once he is cleared to take medications by mouth by general surgery. Blood sugars also uncontrolled and I have started her on sliding scale insulin and Accu-Cheks. Patient agrees that benefits outweigh the risks of proceeding with surgery. 09/15/2020 Patient underwent surgery to repair her ventral hernia overnight. Patient states procedure went very well. Patient states her abdominal pain that caused her admission is now significantly improved and she only has pain at the surgical site which is expected postop. She still has an NG tube placed cur rently and this will remain in place until general surgery clears it to be removed and then patient can start a diet. We will be watching to see if her bowels begin moving in the near future. Blood sugar is significantly elevated and Lantus has been added in addition to her sliding scale insulin. Her A1c was 10.3. She has no new complaints. Reason For Visit: VENTRAL HERNIA Physical Exam Vital Signs: Temp Pulse Resp BP Pulse Ox 98.3 F 118 H 17 153/82 H 90 L 09/15/20 14:33 09/15/20 14:33 09/15/20 14:33 09/15/20 14:33 09/15/20 14:33 Intake & Output 09/14/20 09/15/20 09/16/20 06:59 06:59 06:59 Intake Total 1000 3240 1000 Output Total 2050 Balance 1000 1190 1000 Weight 95.1 kg 98.2 kg Exam: General appearance: PRESENT: no acute distress, well-developed, well-nourished, morbidly obese with BMI of 36, states her surgery went well Head exam: PRESENT: atraumatic, normocephalic Eye exam: PRESENT: conjunctiva pink. ABSENT: scleral icterus Mouth exam: PRESENT: moist Respiratory exam: PRESENT: clear to auscultation tiffanie. ABSENT: rales, rhonchi, wheezes Cardiovascular exam: PRESENT: RRR. ABSENT: diastolic murmur, rubs, systolic murmur GI/Abdominal exam: PRESENT: normal bowel sounds, soft. Hernia repair surgical site mildly tender with binder in place; absent: Guarding, mass, organolmegaly, rebound Neurological exam: PRESENT: alert, awake, oriented to person, oriented to place, oriented to time, oriented to situation Psychiatric exam: PRESENT: appropriate affect, normal mood Skin exam: PRESENT: dry, intact, warm Results Laboratory Results: 09/15/20 04:23 09/15/20 04:23 09/15/20 09/15/20 04:23 04:23 WBC 16.1 H RBC 4.69 Hgb 13.3 Hct 38.9 MCV 83 MCH 28.3 MCHC 34.1 RDW 13.2 Plt Count 278 Seg Neutrophils % Not Reportable Sodium 135.7 L Potassium 4.2 Chloride 99 Carbon Dioxide 25 Anion Gap 12 BUN 17 Creatinine 0.76 Est GFR ( Amer) > 60 Glucose 409 H* Calcium 9.0 Impressions: Abdomen/Pelvis CT 09/14/20 02:10 IMPRESSION: 1. Oral contrast on this examination is essentially noncontributory as only a small amount of oral contrast is noted in the stomach. There has been some decrease in fluid distention of loop of small bowel in the midabdomen but there is worsening edema within the small bowel mesentery associated with this loop of small bowel. Still favor component of a closed loop obstruction and possibly incarceration or strangulation related to the patient's right-sided anterior abdominal wall hernia. Again would recommend surgical consultation. 2. Otherwise stable exam. Assessment and Plan - Diagnosis (1) Hernia, ventral, with obstruction Is this a current diagnosis for this admission?: Yes (2) HTN (hypertension) Is this a current diagnosis for this admission?: Yes (3) T2DM (type 2 diabetes mellitus) Qualifiers: Diabetes mellitus jail insulin use: without technician terminal and repeater use Diabetes mellitus complication status: without complication Qualified Code(s): E11.9 - Type 2 diabetes mellitus without complications Is this a current diagnosis for this admission?: Yes (4) History of partial colectomy Is this a current diagnosis for this admission?: Yes (5) Asthma Qualifiers: Asthma severity: mild Asthma persistence: intermittent Asthma complication type: uncomplicated Qualified Code(s): J45.20 - Mild intermittent asthma, uncomplicated Is this a current diagnosis for this admission?: Yes (6) History of angioedema Is this a current diagnosis for this admission?: Yes - Plan Summary Summary: (1) Hernia, ventral, with obstruction Is this a current diagnosis for this admission?: Yes Plan: Seen on CT abdomen/pelvis General surgery is the primary admitting service Status post OR for hernia repair on 09/14 Nausea/vomiting/abdominal pain on admission Pain management (2) HTN (hypertension) Is this a current diagnosis for this admission?: Yes Plan: Not any medications prior to admission Start IV labetalol as needed as well as scheduled IV Lasix for BP management Patient is allergic to LENNOX inhibitors which cause angioedema as well as clon idine which causes whole body pain reportedly Plan to start aggressive oral BP management once patient is no longer n.p.o. (3) T2DM (type 2 diabetes mellitus) Qualifiers: Diabetes mellitus technician terminal and repeater insulin use: without technician terminal and repeater use Diabetes mellitus complication status: without complication Qualified Code(s): E11.9 - Type 2 diabetes mellitus without complications Is this a current diagnosis for this admission?: Yes Plan: Sliding scale insulin, Accu-Cheks A1c 10.3, very poorly controlled Lantus added (4) History of partial colectomy Is this a current diagnosis for this admission?: Yes Plan: Status post partial colectomy for perforated colon, later had takedown of colostomy (5) Asthma Qualifiers: Asthma severity: mild Asthma persistence: intermittent Asthma complication type: uncomplicated Qualified Code(s): J45.20 - Mild intermittent asthma, uncomplicated Is this a current diagnosis for this admission?: Yes Plan: Uses albuterol intermittently Stable (6) History of angioedema Is this a current diagnosis for this admission?: Yes Plan: Due to LENNOX inhibitor - Time Time Spent with patient: 15-24 minutes Medications reviewed and adjusted accordingly: Yes Anticipated Discharge Disposition: Home with Home Health Anticipated Discharge Timeframe: within 72 hours
[2020-09-15] MEDS: HEPARIN SOD (PORCINE) 5,000 UNIT/ML 1 ML VIAL SUBCUT SCH ×2 (17:27→21:29)
--- NOTE | 2020-09-15 20:38 | PDOC PROGRESS REPORT ---
Subjective Progress Note for:: 09/15/20 Subjective:: Feeling better with less pains today. Feels she is thirsty. I held off her Lasix for now. Denies flatus yet. Reason For Visit: VENTRAL HERNIA Physical Exam Vital Signs: Temp Pulse Resp BP Pulse Ox 98.5 F 124 H 16 156/82 H 90 L 09/15/20 17:06 09/15/20 17:06 09/15/20 17:06 09/15/20 17:06 09/15/20 17:06 Intake & Output 09/14/20 09/15/20 09/16/20 06:59 06:59 06:59 Intake Total 1000 3240 1000 Output Total 2050 395 Balance 1000 1190 605 Weight 95.1 kg 98.2 kg Exam: NG drainage is about 300cc. MANNY drainage about 50 cc of light bloody fluid. Abdomen is soft incision is clean and dry. Abdomen is not distended. He has some mild this tenderness along the incision site. Her lower extremities slightly edematous. She is voiding well. She was able to get out of bed and sit in the bedside chair without much discomfort. Her temperature is 98.5. She is quite tachycardic at 120/min. She is on metoprolol medication for hypertension and tachycardia per hospitalist. Results Laboratory Results: 09/15/20 04:23 09/15/20 04:23 09/15/20 09/15/20 04:23 04:23 WBC 16.1 H RBC 4.69 Hgb 13.3 Hct 38.9 MCV 83 MCH 28.3 MCHC 34.1 RDW 13.2 Plt Count 278 Seg Neutrophils % Not Reportable Sodium 135.7 L Potassium 4.2 Chloride 99 Carbon Dioxide 25 Anion Gap 12 BUN 17 Creatinine 0.76 Est GFR ( Amer) > 60 Glucose 409 H* Calcium 9.0 Impressions: Abdomen/Pelvis CT 09/14/20 02:10 IMPRESSION: 1. Oral contrast on this examination is essentially noncontributory as only a small amount of oral contrast is noted in the stomach. There has been some decrease in fluid distention of loop of small bowel in the midabdomen but there is worsening edema within the small bowel mesentery associated with this loop of small bowel. Still favor component of a closed loop obstruction and possibly incarceration or strangulation related to the patient's right-sided anterior abdominal wall hernia. Again would recommend surgical consultation. 2. Otherwise stable exam. Assessment & Plan - Diagnosis (1) Hernia, ventral, with obstruction Is this a current diagnosis for this admission?: Yes (2) T2DM (type 2 diabetes mellitus) Qualifiers: Diabetes mellitus shelter insulin use: without shelter use Diabetes mellitus complication status: without complication Qualified Code(s): E11.9 - Type 2 diabetes mellitus without complications Is this a current diagnosis for this admission?: Yes - Time Critical Time spent with patient: 15-24 minutes Anticipated Discharge Disposition: Home, Self Care Anticipated Discharge Timeframe: 1 week - Inpatient Certification Medical Necessity: Need For IV Fluids, Need for Pain Control, Need for IV Antibiotics - Plan Summary Plan Summary: 60-year-old female first postop day post reduction and repair of large ventral hernia with placement of mesh as an overlay mesh over her primary repair. Patient is diabetic and hypertensive and this is being followed by the hospitalists. She her white count is elevated at 16,000 today but the temperature is 98.5. She is quite tachycardic she is on medications per hospitalist for this though this might also be partly due to some dehydration since patient feels dry. He is already getting 150 cc of Ringer's lactate per hour and we may have to increase this slightly. She has not passed any flatus yet and therefore we will keep NG tube for now.
[2020-09-16] MEDS ORDERED: RINGERS SOLUTION,LACTATED 1,000 ML IV ONE (01:00)
[2020-09-16] MEDS: LABETALOL HCL INJ 20 MG/4 ML DISP.SYRIN IV PRN ×3 (02:09→12:02)
[2020-09-16] MEDS: MORPHINE SULFATE 10 MG/ML INJ IV PRN ×3 (02:44→23:55)
[2020-09-16] MEDS: CEFAZOLIN SODIUM 2 GM in DEXTROSE 5%-WATER 100 ML IV SCH ×4 (05:32→23:55)
[2020-09-16] MEDS: INSULIN LISPRO 100 UNIT/ML 3 ML VIAL SUBCUT SCH ×4 (07:23→21:46)
[2020-09-16 07:43] LABS: ABSOLUTE BASOPHILS # (AUTO) 0.1 10^3/uL (0.0-0.2); ABSOLUTE EOSINOPHILS # (AUTO) 0.1 10^3/uL (0.0-0.6); ABSOLUTE LYMPHOCYTES (AUTO) 1.5 10^3/uL (0.5-4.7); ABSOLUTE MONOCYTES (AUTO) 1.4 10^3/uL (0.1-1.4); ABSOLUTE NEUT (AUTO) 16.9 10^3/uL (1.7-8.2); BASOPHILS % (AUTO) 0.3 % (0-2); EOSINOPHILS % (AUTO) 0.3 % (0-6); HEMATOCRIT 36.7 % (36.0-47.0); HEMOGLOBIN 12.6 g/dL (12.0-15.5); LYMPHOCYTES % (AUTO) 7.6 % (13-45); MEAN CORPUSCULAR HEMOGLOBIN 28.8 pg (27.0-33.4); MEAN CORPUSCULAR HGB CONC 34.2 g/dL (32.0-36.0); MEAN CORPUSCULAR VOLUME 84 fl (80-97); MONOCYTES % (AUTO) 6.9 % (3-13); RED BLOOD COUNT 4.37 10^6/uL (3.72-5.28); RED CELL DISTRIBUTION WIDTH 13.3 % (11.5-14.0); SEGMENTED NEUTROPHILS % (AUTO) 84.9 % (42-78); TOTAL CELLS COUNTED % (AUTO) 100 %; WHITE BLOOD COUNT 19.9 10^3/uL (4.0-10.5)
[2020-09-16 07:57] LABS: ANION GAP 9 (5-19); BLOOD UREA NITROGEN 20 mg/dL (7-20); CARBON DIOXIDE 30 mmol/L (22-30); CHLORIDE 98 mmol/L (98-107); GLUCOSE 279 mg/dL (75-110); POTASSIUM 3.6 mmol/L (3.6-5.0)
[2020-09-16 08:12] LABS: PLATELET COUNT 234 10^3/uL (150-450)
[2020-09-16] MEDS ORDERED: FUROSEMIDE INJ/PF 40 MG/4 ML SDV IV SCH ×2 (08:54→10:00)
[2020-09-16] MEDS: HEPARIN SOD (PORCINE) 5,000 UNIT/ML 1 ML VIAL SUBCUT SCH ×2 (09:57→21:47)
[2020-09-16] MEDS ORDERED: INSULIN GLARGINE,HUM.REC.ANLOG 1,000 UNIT/10 ML VIAL (PYX) SUBCUT ONE (10:00)
[2020-09-16] MEDS: FUROSEMIDE INJ/PF 40 MG/4 ML SDV IV SCH ×2 (10:01→21:47)
--- NOTE | 2020-09-16 10:39 | PDOC PROGRESS REPORT ---
Subjective Progress Note for:: 09/16/20 Reason For Visit: VENTRAL HERNIA Sitting in chair. Physical Exam Vital Signs: Temp Pulse Resp BP Pulse Ox 98.2 F 118 H 19 199/104 H 92 09/16/20 10:00 09/16/20 08:42 09/16/20 08:42 09/16/20 08:42 09/16/20 08:42 Intake & Output 09/15/20 09/16/20 09/17/20 06:59 06:59 06:59 Intake Total 3240 3200 1000 Output Total 2050 615 Balance 1190 2585 1000 Weight 98.2 kg 100.5 kg General appearance: PRESENT: mild distress GI/Abdominal exam: PRESENT: other - incision healing fine; serosanguineous drainage the bulb dressing. Abdomen is appropriately tender. Results Laboratory Results: 09/16/20 07:16 09/16/20 07:16 09/16/20 09/16/20 09/16/20 00:40 07:16 07:16 WBC 19.9 H RBC 4.37 Hgb 12.6 Hct 36.7 MCV 84 MCH 28.8 MCHC 34.2 RDW 13.3 Plt Count 234 Seg Neutrophils % 84.9 H Sodium 136.9 L Potassium 3.6 Chloride 98 Carbon Dioxide 30 Anion Gap 9 BUN 20 Creatinine 0.70 Est GFR ( Amer) > 60 Glucose 279 H Lactic Acid 1.1 Calcium 9.0 09/16/20 07:16 NT-Pro-B Natriuret Pep 542 H Impressions: Abdomen/Pelvis CT 09/14/20 02:10 IMPRESSION: 1. Oral contrast on this examination is essentially noncontributory as only a small amount of oral contrast is noted in the stomach. There has been some decrease in fluid distention of loop of small bowel in the midabdomen but there is worsening edema within the small bowel mesentery associated with this loop of small bowel. Still favor component of a closed loop obstruction and possibly incarceration or strangulation related to the patient's right-sided anterior abdominal wall hernia. Again would recommend surgical consultation. 2. Otherwise stable exam. Assessment & Plan - Diagnosis (1) Hernia, ventral, with obstruction Is this a current diagnosis for this admission?: Yes Plan: Impression: Patient doing well postoperative day 2 status post exploratory laparotomy, reconstruction of abdominal wall with mesh, and drain, no complications; leukocytosis of unclear etiology. Patient on IV Ancef. Recommendations: 1. We will DC Ferro catheter, and nasogastric tube; leave drain in 2. Will step up pulmonary toilet, incentive spirometer. 3. Keep n.p.o. for now; will consider surgical sips later today (2) Obesity Is this a current diagnosis for this admission?: Yes (3) T2DM (type 2 diabetes mellitus) Qualifiers: Diabetes mellitus assisted insulin use: without assisted use Diabetes mellitus complication status: without complication Qualified Code(s): E11.9 - Type 2 diabetes mellitus without complications - Time Time Spent: 30 to 50 Minutes Critical Time spent with patient: Less than 15 minutes Smoking Cessation Education: 3 to 10 minutes Anticipated Discharge Disposition: Home, Self Care Anticipated Discharge Timeframe: within 72 hours
[2020-09-16 12:14] LABS: APPEARANCE,URINE CLEAR; BILIRUBIN,URINE NEGATIVE (NEGATIVE); COLOR,URINE STRAW; GLUCOSE, URINE 150 mg/dL (NEGATIVE); KETONES,URINE NEGATIVE (NEGATIVE); PROTEIN,URINE NEGATIVE (NEGATIVE); URINE SPECIFIC GRAVITY 1.008; UROBILINOGEN,URINE NEGATIVE mg/dL (<2.0)
--- NOTE | 2020-09-16 16:18 | RADIOLOGY REPORT (SQ) ---
EXAM DESCRIPTION: CHEST SINGLE VIEW IMAGES COMPLETED DATE/TIME: 09/16/2020 2:26 pm REASON FOR STUDY: possible fluid overload COMPARISON: None. EXAM PARAMETERS: NUMBER OF VIEWS: One view. TECHNIQUE: Single frontal radiographic view of the chest acquired. RADIATION DOSE: NA LIMITATIONS: None. FINDINGS: LUNGS AND PLEURA: There is limited opacification in the medial right base. There does not appear to be significant pulmonary vascular congestion. There is no pulmonary edema. MEDIASTINUM AND HILAR STRUCTURES: No masses. Contour normal. HEART AND VASCULAR STRUCTURES: Heart normal in size. Normal vasculature. BONES: No acute findings. HARDWARE: An NG tube extends into the distal stomach. OTHER: No other significant finding. IMPRESSION: Is cannot exclude limited airspace disease in the medial right base, atelectasis versus pneumonia. There is no evidence of fluid overload. TECHNICAL DOCUMENTATION: JOB ID: [id number] 2010 [employer]- All Rights Reserved Reading location - IP/workstation name: [email or web address]
--- NOTE | 2020-09-16 16:37 | PDOC PROGRESS REPORT ---
Subjective Subjective:: KAJAL TAMEZ is a 60 year old female with past medical history significant for HTN, T2DM, asthma, perforated colon status post partial colectomy then takedown who presents with a 2-day history of progressive severe abdominal pain with nausea and vomiting. Patient has not followed with a physician regularly in many years she states. She has not had any medications at home reportedly. Patient is admitted to the general surgery service for incarcerated ventral hernia. Patient's blood pressure significantly elevated with systolics in the 180s on admission. According to patient, she is extremely allergic to LENNOX inhibitor's including lisinopril and she experienced angioedema from this in the past. Patient also states she is unable to tolerate clonidine in any form due to causing her to have whole body pain the last time she was given it. We are very limited in her blood pressure control but I have ordered as needed IV labetalol as well as scheduled IV Lasix. We are unable to use a clonidine patch or captopril IV due to aforementioned allergy/intolerance to these meds. Patient need to be started on aggressive oral blood pressure management once he is cleared to take medications by mouth by general surgery. Blood sugars also uncontrolled and I have started her on sliding scale insulin and Accu-Cheks. Patient agrees that benefits outweigh the risks of proceeding with surgery. 09/15/2020 Patient underwent surgery to repair her ventral hernia overnight. Patient states procedure went very well. Patient states her abdominal pain that caused her admission is now significantly improved and she only has pain at the surgical site which is expected postop. She still has an NG tube placed cur rently and this will remain in place until general surgery clears it to be removed and then patient can start a diet. We will be watching to see if her bowels begin moving in the near future. Blood sugar is significantly elevated and Lantus has been added in addition to her sliding scale insulin. Her A1c was 10.3. She has no new complaints. 09/16/2020 Patient not passing gas or having bowel movements yet. NG tube remains per general surgery orders. Patient's blood pressure is quite high and I spoke with Dr. Mcgrath today regarding this. I do not believe she is dehydrated but rather volume overloaded and we have stopped IV fluids and I have added back to furosemide. I have changed IV labetalol to scheduled as well. Red blood cells are higher though this could simply be a stress reaction from an invasive surgery. There are no other findings consistent with developing infection. If patient develops a fever would recommend starting her on broad-spectrum antibiotics. Chest x-ray ordered which showed questionable airspace disease in the right medial base. Lungs are clear on exam. Mild peripheral edema. If patient has dry mouth, she can have ice chips. UA did not show evidence of infection. Reason For Visit: VENTRAL HERNIA Physical Exam Vital Signs: Temp Pulse Resp BP Pulse Ox 98.3 F 114 H 18 185/99 H 91 L 09/16/20 13:01 09/16/20 13:01 09/16/20 13:01 09/16/20 13:01 09/16/20 13:01 Intake & Output 09/15/20 09/16/20 09/17/20 06:59 06:59 06:59 Intake Total 3240 3200 1000 Output Total 2050 615 Balance 1190 2585 1000 Weight 98.2 kg 100.5 kg Exam: General appearance: PRESENT: no acute distress, well-developed, well-nourished, morbidly obese with BMI of 36, states she is not having flatus or bowel movements yet Head exam: PRESENT: atraumatic, normocephalic Eye exam: PRESENT: conjunctiva pink. ABSENT: scleral icterus Mouth exam: PRESENT: moist Respiratory exam: PRESENT: clear to auscultation tiffanie. ABSENT: rales, rhonchi, wheezes Cardiovascular exam: PRESENT: RRR. ABSENT: diastolic murmur, rubs, systolic murmur GI/Abdominal exam: PRESENT: normal bowel sounds, soft. Hernia repair surgical site tender with binder in place; absent: Guarding, mass, organolmegaly, rebound Neurological exam: PRESENT: alert, awake, oriented to person, oriented to place, oriented to time, oriented to situation Psychiatric exam: PRESENT: appropriate affect, normal mood Skin exam: PRESENT: dry, intact, warm Results Laboratory Results: 09/16/20 07:16 09/16/20 07:16 09/16/20 09/16/20 09/16/20 00:40 07:16 07:16 WBC 19.9 H RBC 4.37 Hgb 12.6 Hct 36.7 MCV 84 MCH 28.8 MCHC 34.2 RDW 13.3 Plt Count 234 Seg Neutrophils % 84.9 H Sodium 136.9 L Potassium 3.6 Chloride 98 Carbon Dioxide 30 Anion Gap 9 BUN 20 Creatinine 0.70 Est GFR ( Amer) > 60 Glucose 279 H Lactic Acid 1.1 Calcium 9.0 Urine Color Urine Appearance Urine pH Ur Specific [place] Urine Protein Urine Glucose (UA) Urine Ketones Urine Blood Urine RBC (Auto) 09/16/20 11:30 WBC RBC Hgb Hct MCV MCH MCHC RDW Plt Count Seg Neutrophils % Sodium Potassium Chloride Carbon Dioxide Anion Gap BUN Creatinine Est GFR ( Amer) Glucose Lactic Acid Calcium Urine Color STRAW Urine Appearance CLEAR Urine pH 6.0 Ur Specific [place] 1.008 Urine Protein NEGATIVE Urine Glucose (UA) 150 H Urine Ketones NEGATIVE Urine Blood MODERATE H Urine RBC (Auto) 2 09/16/20 07:16 NT-Pro-B Natriuret Pep 542 H Impressions: Abdomen/Pelvis CT 09/14/20 02:10 IMPRESSION: 1. Oral contrast on this examination is essentially noncontributory as only a small amount of oral contrast is noted in the stomach. There has been some decrease in fluid distention of loop of small bowel in the midabdomen but there is worsening edema within the small bowel mesentery associated with this loop of small bowel. Still favor component of a closed loop obstruction and possibly incarceration or strangulation related to the patient's right-sided anterior abdominal wall hernia. Again would recommend surgical consultation. 2. Otherwise stable exam. Chest X-Ray 09/16/20 00:00 IMPRESSION: Is cannot exclude limited airspace disease in the medial right base, atelectasis versus pneumonia. There is no evidence of fluid overload. Assessment and Plan - Diagnosis (1) Hernia, ventral, with obstruction Is this a current diagnosis for this admission?: Yes (2) HTN (hypertension) Is this a current diagnosis for this admission?: Yes (3) T2DM (type 2 diabetes mellitus) Qualifiers: Diabetes mellitus correction insulin use: without extermination inspector use Diabetes mellitus complication status: without complication Qualified Code(s): E11.9 - Type 2 diabetes mellitus without complications Is this a current diagnosis for this admission?: Yes (4) History of partial colectomy Is this a current diagnosis for this admission?: Yes (5) Asthma Qualifiers: Asthma severity: mild Asthma persistence: intermittent Asthma complication type: uncomplicated Qualified Code(s): J45.20 - Mild intermittent asthma, uncomplicated Is this a current diagnosis for this admission?: Yes (6) History of angioedema Is this a current diagnosis for this admission?: Yes (7) Leukocytosis Qualifiers: Leukocytosis type: unspecified Qualified Code(s): D72.829 - Elevated white blood cell count, unspecified Is this a current diagnosis for this admission?: Yes Plan: Likely stress response due to surgery No clear evidence of pneumonia on chest x-ray No evidence of infection on UA No evidence of postop wound infection - Plan Summary Summary: (1) Hernia, ventral, with obstruction Is this a current diagnosis for this admission?: Yes Plan: Seen on CT abdomen/pelvis General surgery is the primary admitting service Status post OR for hernia repair on 09/14 Nausea/vomiting/abdominal pain on admission Pain management Bowels slow to pass gas or have bowel movement postop, NG tube to suction in place (2) HTN (hypertension) Is this a current diagnosis for this admission?: Yes Plan: Not any medications prior to admission Start IV labetalol scheduled and scheduled IV Lasix for BP management Patient is allergic to LENNOX inhibitors which cause angioedema as well as clonidine which causes whole body pain reportedly Plan to start aggressive oral BP management once patient is no longer n.p.o. (3) T2DM (type 2 diabetes mellitus) Qualifiers: Diabetes mellitus extermination inspector insulin use: without correction use Diabetes mellitus complication status: without complication Qualified Code(s): E11.9 - Type 2 diabetes mellitus without complications Is this a current diagnosis for this admission?: Yes Plan: Sliding scale insulin, Accu-Cheks A1c 10.3, very poorly controlled Lantus added and dose increased (4) History of partial colectomy Is this a current diagnosis for this admission?: Yes Plan: Status post partial colectomy for perforated colon, later had takedown of colostomy (5) Asthma Qualifiers: Asthma severity: mild Asthma persistence: intermittent Asthma complication type: uncomplicated Qualified Code(s): J45.20 - Mild intermittent asthma, uncomplicated Is this a current diagnosis for this admission?: Yes Plan: Uses albuterol intermittently Stable (6) History of angioedema Is this a current diagnosis for this admission?: Yes Plan: Due to LENNOX inhibitor - Time Time Spent with patient: 25-34 minutes Medications reviewed and adjusted accordingly: Yes Anticipated Discharge Disposition: [facility] Anticipated Discharge Timeframe: within 72 hours
[2020-09-16] MEDS: LABETALOL HCL INJ 20 MG/4 ML DISP.SYRIN IV SCH ×2 (17:10→23:56)
--- NOTE | 2020-09-16 18:04 | EKG REPORT ---
SEVERITY:- ABNORMAL ECG - SINUS TACHYCARDIA PROBABLE LEFT ATRIAL ABNORMALITY LVH WITH SECONDARY REPOLARIZATION ABNORMALITY : Confirmed by: Alexandre Kearney MD 16-Sep-2020 18:04:15
--- NOTE | 2020-09-16 18:24 | XCELERA REPORT ---
[address] [address] Transthoracic Echocardiogram Report Name: KAJAL TAMEZ Age: 60 yrs Gender: Female : 1960 Patient Status: Inpatient Patient Location: [address] [place], [place] [id number] Study Date: 09/16/2020 10:25 AM History: CHF Height: 65 in Weight: 221 lb BSA: 2.1 m2 Procedure: A complete two-dimensional transthoracic echocardiogram was performed (2D, M-mode, spectral and color flow Doppler). The study was technically difficult with many images being suboptimal in quality. Reason For Study: CHF Previous Evaluation: No previous studies were available. History: CHF. Ordering Physician: DELISA MCINTOSH Performed By: Andrew Andersen Interpretation Summary Difficult to comment on diastolic function due to tachycardia and fusion of E/A. The study was technically difficult with many images being suboptimal in quality. Left ventricular systolic function is normal. The Ejection Fraction estimate is 55-60% The right ventricle is normal in size and function. There is a trace amount of mitral regurgitation There is no aortic valve stenosis There is a trace amount of aortic regurgitation There is mild to moderate pulmonary hypertension by echo There is no pericardial effusion. MMode/2D Measurements & Calculations RVDd: 3.1 cm LVIDd: 5.1 cm FS: 35.1 % Ao root diam: 2.9 cm IVSd: 0.96 cm LVIDs: 3.3 cm EDV(Teich): 126.2 ml Ao root area: 6.8 cm2 LVPWd: 0.99 cm ESV(Teich): 45.4 ml LA dimension: 4.4 cm EF(Teich): 64.0 % Doppler Measurements & Calculations MV E max evans: MV P1/2t max evans: Ao V2 max: AI max evans: 72.9 cm/sec 83.1 cm/sec 137.1 cm/sec 424.8 cm/sec MV A max evans: MV P1/2t: 41.8 msec Ao max PG: AI max P.2 mmHg 127.2 cm/sec MVA(P1/2t): 5.3 cm2 7.5 mmHg AI dec slope: MV E/A: 0.57 MV dec slope: 323.6 cm/sec2 AI P1/2t: 384.5 msec 582.1 cm/sec2 MV dec time: 0.13 sec LV V1 max PG: PA V2 max: TR max evans: AV P1/2t-pr_phl: 6.6 mmHg 115.2 cm/sec 305.1 cm/sec 384.5 msec LV V1 max: PA max P.3 mmHg TR max P.9 cm/sec 37.2 mmHg MV P1/2t-pr_phl: 41.8 msec Left Ventricle The left ventricle is normal in size. There is moderate concentric left ventricular hypertrophy. Left ventricular systolic function is normal. The Ejection Fraction estimate is 55-60%. LV diastolic function not assessed. Right Ventricle The right ventricle is normal in size and function. Atria The right atrium is normal. The left atrium is mildly dilated. The interatrial septum is intact with no evidence for an atrial septal defect. There is no Doppler evidence for an interatrial shunt. Mitral Valve The mitral valve is grossly normal. There is no mitral valve stenosis. There is a trace amount of mitral regurgitation. Aortic Valve The aortic valve is mildly calcified. The aortic valve is sclerotic and shows some degree of functional abnormality. The aortic valve is trileaflet. There is no aortic valve stenosis. There is a trace amount of aortic regurgitation. Tricuspid Valve The tricuspid valve is normal in structure and function. There is a trace amount of tricuspid regurgitation. There is mild to moderate pulmonary hypertension by echo. Right ventricular systolic pressure is estimated to be elevated at 40-50mmHg. Pulmonic Valve The pulmonic valve is normal in structure and function. There is no pulmonic valvular stenosis. There is a trace amount of pulmonic regurgitation. Great Vessels The aortic root is normal size. The inferior vena cava appeared normal and decreased > 50% with respiration (RAP 5-10 mmHg). Effusions There is no pericardial effusion. : DELISA MCINTOSH Anil
[2020-09-17] MEDS: CEFAZOLIN SODIUM 2 GM in DEXTROSE 5%-WATER 100 ML IV SCH ×3 (05:21→18:27)
[2020-09-17] MEDS: LABETALOL HCL INJ 20 MG/4 ML DISP.SYRIN IV SCH ×2 (05:23→11:31)
[2020-09-17] MEDS: INSULIN LISPRO 100 UNIT/ML 3 ML VIAL SUBCUT SCH ×4 (07:24→21:14)
[2020-09-17] MEDS ORDERED: INSULIN GLARGINE,HUM.REC.ANLOG 1,000 UNIT/10 ML VIAL SUBCUT SCH (10:00)
[2020-09-17] MEDS ORDERED: INSULIN GLARGINE,HUM.REC.ANLOG 1,000 UNIT/10 ML VIAL (PYX) SUBCUT ONE (10:00)
[2020-09-17] MEDS: HEPARIN SOD (PORCINE) 5,000 UNIT/ML 1 ML VIAL SUBCUT SCH ×2 (10:43→21:14)
[2020-09-17] MEDS: FUROSEMIDE INJ/PF 40 MG/4 ML SDV IV SCH (10:45)
[2020-09-17 11:09] LABS: ABSOLUTE BASOPHILS # (AUTO) 0.1 10^3/uL (0.0-0.2); ABSOLUTE EOSINOPHILS # (AUTO) 0.1 10^3/uL (0.0-0.6); ABSOLUTE LYMPHOCYTES (AUTO) 1.2 10^3/uL (0.5-4.7); ABSOLUTE MONOCYTES (AUTO) 0.7 10^3/uL (0.1-1.4); ABSOLUTE NEUT (AUTO) 10.9 10^3/uL (1.7-8.2); BASOPHILS % (AUTO) 0.8 % (0-2); EOSINOPHILS % (AUTO) 0.4 % (0-6); HEMATOCRIT 34.2 % (36.0-47.0); HEMOGLOBIN 11.7 g/dL (12.0-15.5); LYMPHOCYTES % (AUTO) 9.5 % (13-45); MEAN CORPUSCULAR HEMOGLOBIN 28.3 pg (27.0-33.4); MEAN CORPUSCULAR HGB CONC 34.3 g/dL (32.0-36.0); MEAN CORPUSCULAR VOLUME 82 fl (80-97); MONOCYTES % (AUTO) 5.2 % (3-13); PLATELET COUNT 264 10^3/uL (150-450); RED BLOOD COUNT 4.15 10^6/uL (3.72-5.28); SEGMENTED NEUTROPHILS % (AUTO) 84.1 % (42-78); TOTAL CELLS COUNTED % (AUTO) 100 %
[2020-09-17 11:26] LABS: ANION GAP 8 (5-19); BLOOD UREA NITROGEN 24 mg/dL (7-20); CALCIUM 8.9 mg/dL (8.4-10.2); CARBON DIOXIDE 33 mmol/L (22-30); CHLORIDE 95 mmol/L (98-107); GLUCOSE 217 mg/dL (75-110)
[2020-09-17] MEDS ORDERED: LABETALOL HCL INJ 20 MG/4 ML DISP.SYRIN IV SCH (12:00)
--- NOTE | 2020-09-17 12:32 | PDOC PROGRESS REPORT ---
Subjective Progress Note for:: 09/17/20 Subjective:: Rest pains upper abdomen and right lower quadrant. Has not passed any flatus yet but patient feels some gurgling sounds. Reason For Visit: VENTRAL HERNIA Physical Exam Vital Signs: Temp Pulse Resp BP Pulse Ox 97.4 F 101 H 14 187/74 H 93 09/17/20 08:29 09/17/20 07:49 09/17/20 07:49 09/17/20 07:49 09/17/20 07:49 Intake & Output 09/16/20 09/17/20 09/18/20 06:59 06:59 06:59 Intake Total 3200 1800 Output Total 615 861 Balance 2585 939 Weight 100.5 kg 100.4 kg Exam: Abdomen remains flat soft with incision clean and dry. Mild tenderness at both upper quadrants and right lower quadrant. MANNY drain has been serosanguineous small amount. Results Laboratory Results: 09/17/20 10:50 09/17/20 10:50 09/17/20 09/17/20 09/17/20 04:15 10:50 10:50 WBC 13.0 H RBC 4.15 Hgb 11.7 L Hct 34.2 L MCV 82 MCH 28.3 MCHC 34.3 RDW 13.0 Plt Count 264 Seg Neutrophils % 84.1 H Sodium 136.3 L Potassium 3.0 L* Chloride 95 L Carbon Dioxide 33 H Anion Gap 8 BUN 24 H Creatinine 0.65 Est GFR ( Amer) > 60 Glucose 217 H Lactic Acid 0.8 Calcium 8.9 09/16/20 07:16 NT-Pro-B Natriuret Pep 542 H Impressions: Abdomen/Pelvis CT 09/14/20 02:10 IMPRESSION: 1. Oral contrast on this examination is essentially noncontributory as only a small amount of oral contrast is noted in the stomach. There has been some decrease in fluid distention of loop of small bowel in the midabdomen but there is worsening edema within the small bowel mesentery associated with this loop of small bowel. Still favor component of a closed loop obstruction and possibly incarceration or strangulation related to the patient's right-sided anterior abdominal wall hernia. Again would recommend surgical consultation. 2. Otherwise stable exam. Chest X-Ray 09/16/20 00:00 IMPRESSION: Is cannot exclude limited airspace disease in the medial right base, atelectasis versus pneumonia. There is no evidence of fluid overload. Assessment & Plan - Diagnosis (1) Hernia, ventral, with obstruction Is this a current diagnosis for this admission?: Yes (2) T2DM (type 2 diabetes mellitus) Qualifiers: Diabetes mellitus long term acute care registered nurse insulin use: without snf use Diabetes mellitus complication status: without complication Qualified Code(s): E11.9 - Type 2 diabetes mellitus without complications Is this a current diagnosis for this admission?: Yes - Time Critical Time spent with patient: 15-24 minutes Anticipated Discharge Disposition: Home, Self Care Anticipated Discharge Timeframe: within 72 hours - Inpatient Certification Medical Necessity: Need For IV Fluids, Need for IV Antibiotics - Plan Summary Plan Summary: 60-year-old female status post ventral hernia repair with mesh third postop day. Patient has been afebrile with a white count coming down to 13,000 this morning. She still has some pains in her primarily upper abdomen. Incision remains clean and dry. I can hear bowel sounds on examination. Plans: Start clear liquids today. Get out of bed as much as possible. Continue IV cefazolin for the next 48 to 72hours. Leave drainage catheter for now.
[2020-09-17] MEDS: POTASSIUM CHLORIDE 20 MEQ/50 ML RTU IV SCH ×3 (12:35→16:40)
[2020-09-17] MEDS ORDERED: LABETALOL HCL INJ 20 MG/4 ML DISP.SYRIN IV PRN (16:19)
--- NOTE | 2020-09-17 16:25 | PDOC PROGRESS REPORT ---
Subjective Subjective:: KAJAL TAMEZ is a 60 year old female with past medical history significant for HTN, T2DM, asthma, perforated colon status post partial colectomy then takedown who presents with a 2-day history of progressive severe abdominal pain with nausea and vomiting. Patient has not followed with a physician regularly in many years she states. She has not had any medications at home reportedly. Patient is admitted to the general surgery service for incarcerated ventral hernia. Patient's blood pressure significantly elevated with systolics in the 180s on admission. According to patient, she is extremely allergic to LENNOX inhibitor's including lisinopril and she experienced angioedema from this in the past. Patient also states she is unable to tolerate clonidine in any form due to causing her to have whole body pain the last time she was given it. We are very limited in her blood pressure control but I have ordered as needed IV labetalol as well as scheduled IV Lasix. We are unable to use a clonidine patch or captopril IV due to aforementioned allergy/intolerance to these meds. Patient need to be started on aggressive oral blood pressure management once he is cleared to take medications by mouth by general surgery. Blood sugars also uncontrolled and I have started her on sliding scale insulin and Accu-Cheks. Patient agrees that benefits outweigh the risks of proceeding with surgery. 09/15/2020 Patient underwent surgery to repair her ventral hernia overnight. Patient states procedure went very well. Patient states her abdominal pain that caused her admission is now significantly improved and she only has pain at the surgical site which is expected postop. She still has an NG tube placed cur rently and this will remain in place until general surgery clears it to be removed and then patient can start a diet. We will be watching to see if her bowels begin moving in the near future. Blood sugar is significantly elevated and Lantus has been added in addition to her sliding scale insulin. Her A1c was 10.3. She has no new complaints. 09/16/2020 Patient not passing gas or having bowel movements yet. NG tube remains per general surgery orders. Patient's blood pressure is quite high and I spoke with Dr. Mcgrath today regarding this. I do not believe she is dehydrated but rather volume overloaded and we have stopped IV fluids and I have added back to furosemide. I have changed IV labetalol to scheduled as well. Red blood cells are higher though this could simply be a stress reaction from an invasive surgery. There are no other findings consistent with developing infection. If patient develops a fever would recommend starting her on broad-spectrum antibiotics. Chest x-ray ordered which showed questionable airspace disease in the right medial base. Lungs are clear on exam. Mild peripheral edema. If patient has dry mouth, she can have ice chips. UA did not show evidence of infection. 09/17/2020 Patient's WBC has dropped significantly down to 13 from previous value without any specific intervention for possible infection. Likely high white blood cell count was due to stress from surgery. I do not see any specific signs that the patient has an infection. General surgery started the patient on antibiotics. Patient was started on clear liquid diet as she is passing some flatus. I have transitioned her blood pressure medications to oral and I have adjusted her Lantus to a higher dose to account for her elevated blood glucose. Patient needs a great deal of primary care follow-up after discharge. She may need to get this at the [facility] if she does not have insurance. In general, patient seems to be steadily improving each day that I see her. Other than some expected abdominal pain at her surgical site, she has no new complaints. Reason For Visit: VENTRAL HERNIA Physical Exam Vital Signs: Temp Pulse Resp BP Pulse Ox 98.0 F 94 16 158/90 H 96 09/17/20 11:59 09/17/20 11:59 09/17/20 11:59 09/17/20 11:59 09/17/20 11:59 Intake & Output 09/16/20 09/17/20 09/18/20 06:59 06:59 06:59 Intake Total 3200 1800 39 Output Total 615 861 Balance 2585 939 39 Weight 100.5 kg 100.4 kg 100.4 kg Exam: General appearance: PRESENT: no acute distress, well-developed, well-nourished, morbidly obese with BMI of 36, states she is feeling better in general Head exam: PRESENT: atraumatic, normocephalic Eye exam: PRESENT: conjunctiva pink. ABSENT: scleral icterus Mouth exam: PRESENT: moist Respiratory exam: PRESENT: clear to auscultation tiffanie. ABSENT: rales, rhonchi, wheezes Cardiovascular exam: PRESENT: RRR. ABSENT: diastolic murmur, rubs, systolic murmur GI/Abdominal exam: PRESENT: normal bowel sounds, soft. Hernia repair surgical site tender with binder in place; absent: Guarding, mass, organolmegaly, rebound Neurological exam: PRESENT: alert, awake, oriented to person, oriented to place, oriented to time, oriented to situation Psychiatric exam: PRESENT: appropriate affect, normal mood Skin exam: PRESENT: dry, intact, warm Results Laboratory Results: 09/17/20 10:50 09/17/20 10:50 09/17/20 09/17/20 09/17/20 04:15 10:50 10:50 WBC 13.0 H RBC 4.15 Hgb 11.7 L Hct 34.2 L MCV 82 MCH 28.3 MCHC 34.3 RDW 13.0 Plt Count 264 Seg Neutrophils % 84.1 H Sodium 136.3 L Potassium 3.0 L* Chloride 95 L Carbon Dioxide 33 H Anion Gap 8 BUN 24 H Creatinine 0.65 Est GFR ( Amer) > 60 Glucose 217 H Lactic Acid 0.8 Calcium 8.9 09/16/20 07:16 NT-Pro-B Natriuret Pep 542 H Impressions: Abdomen/Pelvis CT 09/14/20 02:10 IMPRESSION: 1. Oral contrast on this examination is essentially noncontributory as only a small amount of oral contrast is noted in the stomach. There has been some decrease in fluid distention of loop of small bowel in the midabdomen but there is worsening edema within the small bowel mesentery associated with this loop of small bowel. Still favor component of a closed loop obstruction and possibly incarceration or strangulation related to the patient's right-sided anterior abdominal wall hernia. Again would recommend surgical consultation. 2. Otherwise stable exam. Chest X-Ray 09/16/20 00:00 IMPRESSION: Is cannot exclude limited airspace disease in the medial right base, atelectasis versus pneumonia. There is no evidence of fluid overload. Assessment and Plan - Diagnosis (1) Hernia, ventral, with obstruction Is this a current diagnosis for this admission?: Yes (2) HTN (hypertension) Is this a current diagnosis for this admission?: Yes (3) T2DM (type 2 diabetes mellitus) Qualifiers: Diabetes mellitus jail insulin use: without jail use Diabetes mellitus complication status: without complication Qualified Code(s): E11.9 - Type 2 diabetes mellitus without complications Is this a current diagnosis for this admission?: Yes (4) History of partial colectomy Is this a current diagnosis for this admission?: Yes (5) Asthma Qualifiers: Asthma severity: mild Asthma persistence: intermittent Asthma complicat ion type: uncomplicated Qualified Code(s): J45.20 - Mild intermittent asthma, uncomplicated Is this a current diagnosis for this admission?: Yes (6) History of angioedema Is this a current diagnosis for this admission?: Yes (7) Leukocytosis Qualifiers: Leukocytosis type: unspecified Qualified Code(s): D72.829 - Elevated white blood cell count, unspecified Is this a current diagnosis for this admission?: Yes - Plan Summary Summary: (1) Hernia, ventral, with obstruction Is this a current diagnosis for this admission?: Yes Plan: Seen on CT abdomen/pelvis General surgery is the primary admitting service Status post OR for hernia repair on 09/14 Nausea/vomiting/abdominal pain on admission Pain management Bowels slow to pass gas or have bowel movement postop, NG tube removed by general surgery Clear liquid diet started by general surgery on 09/17 (2) HTN (hypertension) Is this a current diagnosis for this admission?: Yes Plan: Not any medications prior to admission Start IV labetalol scheduled and scheduled IV Lasix for BP management Patient is allergic to LENNOX inhibitors which cause angioedema as well as clonidine which causes whole body pain reportedly BP meds transitioned to oral, added nifedipine/chlorthalidone/Cardura and stopped scheduled IV labetalol, left this on as-needed basis in case she starts vomiting and can no longer take oral meds (3) T2DM (type 2 diabetes mellitus) Qualifiers: Diabetes mellitus supervisor intermediates insulin use: without jail use Diabetes mellitus complication status: without complication Qualified Code(s): E11.9 - Type 2 diabetes mellitus without complications Is this a current diagnosis for this admission?: Yes Plan: Sliding scale insulin, Accu-Cheks A1c 10.3, very poorly controlled Lantus added and dose increased (4) History of partial colectomy Is this a current diagnosis for this admission?: Yes Plan: Status post partial colectomy for perforated colon, later had takedown of colostomy (5) Asthma Qualifiers: Asthma severity: mild Asthma persistence: intermittent Asthma complication type: uncomplicated Qualified Code(s): J45.20 - Mild intermittent asthma, uncomplicated Is this a current diagnosis for this admission?: Yes Plan: Uses albuterol intermittently Stable (6) History of angioedema Is this a current diagnosis for this admission?: Yes Plan: Due to LENNOX inhibitor - Time Time Spent with patient: 25-34 minutes Medications reviewed and adjusted accordingly: Yes Anticipated Discharge Disposition: Home with Home Health Anticipated Discharge Timeframe: within 72 hours
[2020-09-17] MEDS: NIFEDIPINE 30 MG TAB.ER.24 PO SCH (18:28)
[2020-09-17] MEDS: DOXAZOSIN MESYLATE 2 MG TABLET PO SCH (21:14)
[2020-09-18] MEDS: CEFAZOLIN SODIUM 2 GM in DEXTROSE 5%-WATER 100 ML IV SCH ×3 (00:09→11:47)
[2020-09-18] MEDS: NIFEDIPINE 30 MG TAB.ER.24 PO SCH ×2 (05:04→18:56)
[2020-09-18 05:56] LABS: ANION GAP 12 (5-19); BLOOD UREA NITROGEN 22 mg/dL (7-20); CALCIUM 9.1 mg/dL (8.4-10.2); CARBON DIOXIDE 30 mmol/L (22-30); CHLORIDE 96 mmol/L (98-107); GLUCOSE 187 mg/dL (75-110)
[2020-09-18 06:00] LABS: ABSOLUTE BASOPHILS # (AUTO) 0.1 10^3/uL (0.0-0.2); ABSOLUTE EOSINOPHILS # (AUTO) 0.1 10^3/uL (0.0-0.6); ABSOLUTE LYMPHOCYTES (AUTO) 1.5 10^3/uL (0.5-4.7); ABSOLUTE MONOCYTES (AUTO) 0.8 10^3/uL (0.1-1.4); ABSOLUTE NEUT (AUTO) 8.1 10^3/uL (1.7-8.2); BASOPHILS % (AUTO) 0.9 % (0-2); EOSINOPHILS % (AUTO) 1.3 % (0-6); HEMOGLOBIN 13.1 g/dL (12.0-15.5); LYMPHOCYTES % (AUTO) 13.7 % (13-45); MEAN CORPUSCULAR HEMOGLOBIN 28.9 pg (27.0-33.4); MEAN CORPUSCULAR HGB CONC 35.5 g/dL (32.0-36.0); MEAN CORPUSCULAR VOLUME 82 fl (80-97); MONOCYTES % (AUTO) 7.6 % (3-13); PLATELET COUNT 283 10^3/uL (150-450); RED BLOOD COUNT 4.54 10^6/uL (3.72-5.28); RED CELL DISTRIBUTION WIDTH 12.8 % (11.5-14.0); SEGMENTED NEUTROPHILS % (AUTO) 76.5 % (42-78); TOTAL CELLS COUNTED % (AUTO) 100 %; WHITE BLOOD COUNT 10.6 10^3/uL (4.0-10.5)
[2020-09-18 06:03] LABS: POTASSIUM 2.7 mmol/L (3.6-5.0)
[2020-09-18] MEDS: POTASSIUM CHLORIDE 20 MEQ/50 ML RTU IV SCH ×2 (06:53→14:11)
[2020-09-18] MEDS ORDERED: POTASSIUM CHLORIDE 10 MEQ TABLET.ER PO ONE (07:00)
[2020-09-18] MEDS: INSULIN LISPRO 100 UNIT/ML 3 ML VIAL SUBCUT SCH ×4 (08:35→22:04)
[2020-09-18] MEDS ORDERED: INSULIN GLARGINE,HUM.REC.ANLOG 1,000 UNIT/10 ML VIAL (PYX) SUBCUT ONE (10:00)
[2020-09-18] MEDS ORDERED: INSULIN GLARGINE,HUM.REC.ANLOG 1,000 UNIT/10 ML VIAL SUBCUT SCH (10:00)
[2020-09-18] MEDS: METOPROLOL SUCCINATE 25 MG TAB.SR.24H PO SCH (10:35)
[2020-09-18] MEDS: CHLORTHALIDONE 25 MG TABLET PO SCH (10:36)
[2020-09-18] MEDS: HEPARIN SOD (PORCINE) 5,000 UNIT/ML 1 ML VIAL SUBCUT SCH ×2 (10:38→22:03)
[2020-09-18] MEDS ORDERED: ACETAMINOPHEN 325 MG TABLET PO PRN (14:02)
--- NOTE | 2020-09-18 14:05 | PDOC PROGRESS REPORT ---
Subjective Progress Note for:: 09/18/20 Subjective:: Patient comfortable, no complaints, flatus present, tolerating p.o. well Reason For Visit: VENTRAL HERNIA Physical Exam Vital Signs: Temp Pulse Resp BP Pulse Ox 97.9 F 107 H 12 136/79 H 91 L 09/18/20 12:00 09/18/20 12:00 09/18/20 12:00 09/18/20 12:00 09/18/20 03:44 Intake & Output 09/17/20 09/18/20 09/19/20 06:59 06:59 06:59 Intake Total 1800 229 Output Total 861 200 Balance 939 29 Weight 100.4 kg 98.5 kg General appearance: PRESENT: no acute distress, obese Respiratory exam: PRESENT: clear to auscultation tiffanie Cardiovascular exam: PRESENT: RRR GI/Abdominal exam: PRESENT: normal bowel sounds, soft, other - Lower transverse abdominal incision clean, dry, and intact; right lower quadrant Monster drain with serosanguineous fluid Results Laboratory Results: 09/18/20 05:01 09/18/20 05:01 09/18/20 09/18/20 09/18/20 05:01 05:01 05:01 WBC 10.6 H RBC 4.54 Hgb 13.1 Hct 37.0 MCV 82 MCH 28.9 MCHC 35.5 RDW 12.8 Plt Count 283 Seg Neutrophils % 76.5 Sodium 138.4 Potassium 2.7 L* Chloride 96 L Carbon Dioxide 30 Anion Gap 12 BUN 22 H Creatinine 0.62 Est GFR ( Amer) > 60 Glucose 187 H Lactic Acid 1.0 Calcium 9.1 09/16/20 07:16 NT-Pro-B Natriuret Pep 542 H Impressions: Abdomen/Pelvis CT 09/14/20 02:10 IMPRESSION: 1. Oral contrast on this examination is essentially noncontributory as only a small amount of oral contrast is noted in the stomach. There has been some decrease in fluid distention of loop of small bowel in the midabdomen but there is worsening edema within the small bowel mesentery associated with this loop of small bowel. Still favor component of a closed loop obstruction and possibly incarceration or strangulation related to the patient's right-sided anterior abdominal wall hernia. Again would recommend surgical consultation. 2. Otherwise stable exam. Chest X-Ray 09/16/20 00:00 IMPRESSION: Is cannot exclude limited airspace disease in the medial right base, atelectasis versus pneumonia. There is no evidence of fluid overload. Assessment & Plan - Time Anticipated Discharge Disposition: Home, Self Care Anticipated Discharge Timeframe: within 24 hours - Plan Summary Plan Summary: Assessment: Postoperative day #4 for repair of incarcerated ventral hernia with absorbable mesh Vital signs stable, patient afebrile Potassium level 2.7, currently being replaced Abdomen obese, soft, overt transverse incision is well-healing Monster drain output serosanguineous about 11 mL for the past 24 hours Plan: Continue potassium replacement Plan to discharge the patient home tomorrow Advance diet to diabetic diet Stop narcotics Tylenol and naproxen as needed for pain Discontinue Ancef
[2020-09-18] MEDS ORDERED: NAPROXEN 250 MG TABLET PO PRN (14:15)
--- NOTE | 2020-09-18 16:45 | PDOC PROGRESS REPORT ---
Subjective Subjective:: KAJAL TAMEZ is a 60 year old female with past medical history significant for HTN, T2DM, asthma, perforated colon status post partial colectomy then takedown who presents with a 2-day history of progressive severe abdominal pain with nausea and vomiting. Patient has not followed with a physician regularly in many years she states. She has not had any medications at home reportedly. Patient is admitted to the general surgery service for incarcerated ventral hernia. Patient's blood pressure significantly elevated with systolics in the 180s on admission. According to patient, she is extremely allergic to LENNOX inhibitor's including lisinopril and she experienced angioedema from this in the past. Patient also states she is unable to tolerate clonidine in any form due to causing her to have whole body pain the last time she was given it. We are very limited in her blood pressure control but I have ordered as needed IV labetalol as well as scheduled IV Lasix. We are unable to use a clonidine patch or captopril IV due to aforementioned allergy/intolerance to these meds. Patient need to be started on aggressive oral blood pressure management once he is cleared to take medications by mouth by general surgery. Blood sugars also uncontrolled and I have started her on sliding scale insulin and Accu-Cheks. Patient agrees that benefits outweigh the risks of proceeding with surgery. 09/15/2020 Patient underwent surgery to repair her ventral hernia overnight. Patient states procedure went very well. Patient states her abdominal pain that caused her admission is now significantly improved and she only has pain at the surgical site which is expected postop. She still has an NG tube placed cur rently and this will remain in place until general surgery clears it to be removed and then patient can start a diet. We will be watching to see if her bowels begin moving in the near future. Blood sugar is significantly elevated and Lantus has been added in addition to her sliding scale insulin. Her A1c was 10.3. She has no new complaints. 09/16/2020 Patient not passing gas or having bowel movements yet. NG tube remains per general surgery orders. Patient's blood pressure is quite high and I spoke with Dr. Mcgrath today regarding this. I do not believe she is dehydrated but rather volume overloaded and we have stopped IV fluids and I have added back to furosemide. I have changed IV labetalol to scheduled as well. Red blood cells are higher though this could simply be a stress reaction from an invasive surgery. There are no other findings consistent with developing infection. If patient develops a fever would recommend starting her on broad-spectrum antibiotics. Chest x-ray ordered which showed questionable airspace disease in the right medial base. Lungs are clear on exam. Mild peripheral edema. If patient has dry mouth, she can have ice chips. UA did not show evidence of infection. 09/17/2020 Patient's WBC has dropped significantly down to 13 from previous value without any specific intervention for possible infection. Likely high white blood cell count was due to stress from surgery. I do not see any specific signs that the patient has an infection. General surgery started the patient on antibiotics. Patient was started on clear liquid diet as she is passing some flatus. I have transitioned her blood pressure medications to oral and I have adjusted her Lantus to a higher dose to account for her elevated blood glucose. Patient needs a great deal of primary care follow-up after discharge. She may need to get this at the [facility] if she does not have insurance. In general, patient seems to be steadily improving each day that I see her. Other than some expected abdominal pain at her surgical site, she has no new complaints. 09/18/2020 Patient seems to be doing much better today. Her blood pressure is substantially improved with systolics now in the 130s. This is probably the best her blood pressure has been in many months. Started metoprolol. Staple line from patient's surgery looks to be doing quite well there is no evidence of infection overlying this wound. Her white blood cells are trending down. Her potassium is low we will replete this. Blood sugar is elevated and I have increased her Lantus appropriately. Possible discharge on Sunday per patient's discussion with general surgery. Reason For Visit: VENTRAL HERNIA Physical Exam Vital Signs: Temp Pulse Resp BP Pulse Ox 97.9 F 107 H 12 136/79 H 91 L 09/18/20 12:00 09/18/20 12:00 09/18/20 12:00 09/18/20 12:00 09/18/20 03:44 Intake & Output 09/17/20 09/18/20 09/19/20 06:59 06:59 06:59 Intake Total 1800 229 50 Output Total 861 200 Balance 939 29 50 Weight 100.4 kg 98.5 kg Exam: General appearance: PRESENT: no acute distress, well-developed, well-nourished, morbidly obese with BMI of 36, states she is looking forward to going home soon Head exam: PRESENT: atraumatic, normocephalic Eye exam: PRESENT: conjunctiva pink. ABSENT: scleral icterus Mouth exam: PRESENT: moist Respiratory exam: PRESENT: clear to auscultation tiffanie. ABSENT: rales, rhonchi, wheezes Cardiovascular exam: PRESENT: RRR. ABSENT: diastolic murmur, rubs, systolic murmur GI/Abdominal exam: PRESENT: normal bowel sounds, soft. Healing surgical site that is mildly tender with binder in place; absent: Guarding, mass, organolmegaly, rebound Neurological exam: PRESENT: alert, awake, oriented to person, oriented to place, oriented to time, oriented to situation Psychiatric exam: PRESENT: appropriate affect, normal mood Skin exam: PRESENT: dry, intact, warm Results Laboratory Results: 09/18/20 05:01 09/18/20 05:01 09/18/20 09/18/20 09/18/20 05:01 05:01 05:01 WBC 10.6 H RBC 4.54 Hgb 13.1 Hct 37.0 MCV 82 MCH 28.9 MCHC 35.5 RDW 12.8 Plt Count 283 Seg Neutrophils % 76.5 Sodium 138.4 Potassium 2.7 L* Chloride 96 L Carbon Dioxide 30 Anion Gap 12 BUN 22 H Creatinine 0.62 Est GFR ( Amer) > 60 Glucose 187 H Lactic Acid 1.0 Calcium 9.1 09/16/20 07:16 NT-Pro-B Natriuret Pep 542 H Impressions: Abdomen/Pelvis CT 09/14/20 02:10 IMPRESSION: 1. Oral contrast on this examination is essentially noncontributory as only a small amount of oral contrast is noted in the stomach. There has been some decrease in fluid distention of loop of small bowel in the midabdomen but there is worsening edema within the small bowel mesentery associated with this loop of small bowel. Still favor component of a closed loop obstruction and possibly incarceration or strangulation related to the patient's right-sided anterior abdominal wall hernia. Again would recommend surgical consultation. 2. Otherwise stable exam. Chest X-Ray 09/16/20 00:00 IMPRESSION: Is cannot exclude limited airspace disease in the medial right base, atelectasis versus pneumonia. There is no evidence of fluid overload. Assessment and Plan - Diagnosis (1) Hernia, ventral, with obstruction Is this a current diagnosis for this admission?: Yes (2) HTN (hypertension) Is this a current diagnosis for this admission?: Yes (3) T2DM (type 2 diabetes mellitus) Qualifiers: Diabetes mellitus skilled nursing insulin use: without exterminator use Diabetes mellitus complication status: without complication Qualified Code(s): E11.9 - Type 2 diabetes mellitus without complications Is this a current diagnosis for this admission?: Yes (4) History of partial colectomy Is this a current diagnosis for this admission?: Yes (5) Asthma Qualifiers: Asthma severity: mild Asthma persistence: intermittent Asthma complication type: uncomplicated Qualified Code(s): J45.20 - Mild intermittent asthma, uncomplicated Is this a current diagnosis for this admission?: Yes (6) History of angioedema Is this a current diagnosis for this admission?: Yes (7) Leukocytosis Qualifiers: Leukocytosis type: unspecified Qualified Code(s): D72.829 - Elevated white blood cell count, unspecified Is this a current diagnosis for this admission?: Yes - Plan Summary Summary: (1) Hernia, ventral, with obstruction Is this a current diagnosis for this admission?: Yes Plan: Seen on CT abdomen/pelvis General surgery is the primary admitting service Status post OR for hernia repair on 09/14 Nausea/vomiting/abdominal pain on admission Pain management Bowels slow to pass gas or have bowel movement postop, NG tube removed by general surgery Clear liquid diet started by general surgery on 09/17 (2) HTN (hypertension) Is this a current diagnosis for this admission?: Yes Plan: Not any medications prior to admission Start IV labetalol scheduled and scheduled IV Lasix for BP management Patient is allergic to LENNOX inhibitors which cause angioedema as well as clonidi ne which causes whole body pain reportedly BP meds transitioned to oral, added nifedipine/chlorthal idone/Cardura/metoprolol; stopped scheduled IV labetalol, left this on as-needed basis in case she starts vomiting and can no longer take oral meds Significant improvement in BP control since admission (3) T2DM (type 2 diabetes mellitus) Qualifiers: Diabetes mellitus skilled nursing insulin use: without exterminator use Diabetes mellitus complication status: without complication Qualified Code(s): E11.9 - Type 2 diabetes mellitus without complications Is this a current diagnosis for this admission?: Yes Plan: Sliding scale insulin, Accu-Cheks A1c 10.3, very poorly controlled Lantus added and dose increased multiple times; will need insulin at discharge (4) History of partial colectomy Is this a current diagnosis for this admission?: Yes Plan: Status post partial colectomy for perforated colon, later had takedown of colostomy (5) Asthma Qualifiers: Asthma severity: mild Asthma persistence: intermittent Asthma complication type: uncomplicated Qualified Code(s): J45.20 - Mild intermittent asthma, uncomplicated Is this a current diagnosis for this admission?: Yes Plan: Uses albuterol intermittently Stable (6) History of angioedema Is this a current diagnosis for this admission?: Yes Plan: Due to LENNOX inhibitor - Time Time Spent with patient: 15-24 minutes Medications reviewed and adjusted accordingly: Yes Anticipated Discharge Disposition: Home with Home Health Anticipated Discharge Timeframe: within 48 hours
[2020-09-18] MEDS: DOXAZOSIN MESYLATE 2 MG TABLET PO SCH (22:03)
[2020-09-19] MEDS: NIFEDIPINE 30 MG TAB.ER.24 PO SCH (05:21)
[2020-09-19 06:40] LABS: ANION GAP 7 (5-19); BLOOD UREA NITROGEN 17 mg/dL (7-20); CALCIUM 8.5 mg/dL (8.4-10.2); CARBON DIOXIDE 31 mmol/L (22-30); CHLORIDE 98 mmol/L (98-107); GLUCOSE 150 mg/dL (75-110)
[2020-09-19] MEDS: INSULIN LISPRO 100 UNIT/ML 3 ML VIAL SUBCUT SCH ×3 (08:07→16:53)
[2020-09-19] MEDS: POTASSIUM CHLORIDE 20 MEQ/50 ML RTU IV SCH ×3 (08:22→14:34)
[2020-09-19] MEDS ORDERED: POTASSIUM CHLORIDE 20 MEQ PACKET PO SCH (10:00)
[2020-09-19] MEDS ORDERED: INSULIN GLARGINE,HUM.REC.ANLOG 1,000 UNIT/10 ML VIAL SUBCUT SCH (10:00)
[2020-09-19] MEDS: METOPROLOL SUCCINATE 25 MG TAB.SR.24H PO SCH (10:05)
[2020-09-19] MEDS: HEPARIN SOD (PORCINE) 5,000 UNIT/ML 1 ML VIAL SUBCUT SCH (10:06)
[2020-09-19] MEDS: CHLORTHALIDONE 25 MG TABLET PO SCH (10:06)
[2020-09-19 14:58] LABS: ANION GAP 9 (5-19); BLOOD UREA NITROGEN 16 mg/dL (7-20); CALCIUM 8.2 mg/dL (8.4-10.2); CARBON DIOXIDE 25 mmol/L (22-30); CHLORIDE 100 mmol/L (98-107); GLUCOSE 180 mg/dL (75-110); POTASSIUM 3.7 mmol/L (3.6-5.0)
--- NOTE | 2020-09-19 15:05 | PDOC DISCHARGE SUMMARY ---
General - Admit/Disc Date/PCP Admission Date/Primary Care Provider: 09/14/20 10:44 Discharge Date: 09/19/20 - Discharge Diagnosis Final Diagnosis: Incarcerated umbilical hernia - Assessment Summary: The patient is a morbidly obese 60-year-old female who was admitted on September 14, 2020 with an incarcerated umbilical hernia. She went to surgery on the same day with hernia repair with biologic mesh. The patient was then admitted to the floor where she slowly improved and her diet was advanced and she was discharged home on September 19, 2020 in satisfactory conditions. Her drain was removed, her abdomen was soft, the abdominal wound was clean, dry, and intact. She was given appointment with a surgical office in 2 weeks, instructed no heavy lifting pushing the straining for about 3 months, shower only until matty are in place. Follow-up per primary care physician. The patient was given additional prescription medications as per the hospitalist. Patient was instructed to take Tylenol and Aleve as needed for pain. (1) Hernia, ventral, with obstruction Is this a current diagnosis for this admission?: Yes Plan: Seen on CT abdomen/pelvis General surgery is the primary admitting service Status post OR for hernia repair on 09/14 Nausea/vomiting/abdominal pain on admission Pain management Bowels slow to pass gas or have bowel movement postop, NG tube removed by general surgery Clear liquid diet started by general surgery on 09/17 (2) HTN (hypertension) Is this a current diagnosis for this admission?: Yes Plan: Not any medications prior to admission Start IV labetalol scheduled and scheduled IV Lasix for BP management Patient is allergic to LENNOX inhibitors which cause angioedema as well as clonidine which causes whole body pain reportedly BP meds transitioned to oral, added nifedipine/chlorthalidone/Cardura/metoprol ol; stopped scheduled IV labetalol, left this on as-needed basis in case she starts vomiting and can no longer take oral meds Significant improvement in BP control since admission (3) T2DM (type 2 diabetes mellitus) Qualifiers: Diabetes mellitus snf insulin use: without belt puncher use Diabetes mellitus complication status: without complication Qualified Code(s): E11.9 - Type 2 diabetes mellitus without complications Is this a current diagnosis for this admission?: Yes Plan: Sliding scale insulin, Accu-Cheks A1c 10.3, very poorly controlled Lantus added and dose increased multiple times; will need insulin at discharge (4) History of partial colectomy Is this a current diagnosis for this admission?: Yes Plan: Status post partial colectomy for perforated colon, later had takedown of colostomy (5) Asthma Qualifiers: Asthma severity: mild Asthma persistence: intermittent Asthma complication type: uncomplicated Qualified Code(s): J45.20 - Mild intermittent asthma, uncomplicated Is this a current diagnosis for this admission?: Yes Plan: Uses albuterol intermittently Stable (6) History of angioedema Is this a current diagnosis for this admission?: Yes Plan: Due to LENNOX inhibitor - Additional Information Resuscitation Status: Full Code Discharge Diet: As Tolerated Discharge Activity: Balance Activity w/Rest, No Lifting Over 10 Pounds, No Lifting/Push/Pulling, No tub bath - Patient can shower, tub bath when the matty are removed, Walk Frequently Referrals: [facility] [Provider Group] (s/p 09/14 exploratory laporotomy, hernia repair.) Home Medications: Acetaminophen [Tylenol 325 mg Tablet] 325 mg PO Q4HP PRN tablet 09/19/20 Albuterol Sulfate [Ventolin 0.083% Neb 2.5 mg/3 mL Ampul] 2.5 mg NEB RTQ2HP PRN vial.neb 09/19/20 Chlorthalidone [Hygroton 25 mg Tablet] 25 mg PO DAILY tablet 09/19/20 Doxazosin Mesylate [Cardura 2 mg Tablet] 2 mg PO QHS tablet 09/19/20 Insulin Glargine,Hum.rec.anlog [Lantus Insulin 100 Unit/1 ml 10 ml] 22 unit SUBCUT DAILY unit 09/19/20 Insulin Lispro [Humalog Insulin (Lispro) 100 unit/mL] 0 - 12 unit SUBCUT ACHS unit 09/19/20 Metoprolol Succinate [Toprol Xl 25 mg Tab.sr] 25 mg PO DAILY tab.sr.24h 09/19/20 Naproxen [Naprosyn 250 mg Tablet] 250 mg PO BIDP PRN tablet 09/19/20 Nifedipine [Procardia XL 30 mg Tablet] 30 mg PO Q12A tab.er.24 09/19/20 Additional Information: See above History of Present Illiness History of Present Illness: KAJAL TAMEZ is a 60 year old female Physical Exam Vital Signs: Temp Pulse Resp BP Pulse Ox 97.8 F 95 19 142/80 H 96 09/19/20 10:59 09/19/20 10:59 09/19/20 10:59 09/19/20 10:59 09/19/20 10:59 Intake & Output 09/18/20 09/19/20 09/20/20 06:59 06:59 06:59 Intake Total 229 340 580 Output Total 200 20 Balance 29 320 580 Weight 98.5 kg 100.4 kg Results Laboratory Results: WBC 10.6 10^3/uL (4.0-10.5) H 09/18/20 05:01 RBC 4.54 10^6/uL (3.72-5.28) 09/18/20 05:01 Hgb 13.1 g/dL (12.0-15.5) 09/18/20 05:01 Hct 37.0 % (36.0-47.0) 09/18/20 05:01 MCV 82 fl (80-97) 09/18/20 05:01 MCH 28.9 pg (27.0-33.4) 09/18/20 05:01 MCHC 35.5 g/dL (32.0-36.0) 09/18/20 05:01 RDW 12.8 % (11.5-14.0) 09/18/20 05:01 Plt Count 283 10^3/uL (150-450) 09/18/20 05:01 Lymph % (Auto) 13.7 % (13-45) 09/18/20 05:01 [place] % (Auto) 7.6 % (3-13) 09/18/20 05:01 Eos % (Auto) 1.3 % (0-6) 09/18/20 05:01 Baso % (Auto) 0.9 % (0-2) 09/18/20 05:01 Absolute Neuts (auto) 8.1 10^3/uL (1.7-8.2) 09/18/20 05:01 Absolute Lymphs (auto) 1.5 10^3/uL (0.5-4.7) 09/18/20 05:01 Absolute Monos (auto) 0.8 10^3/uL (0.1-1.4) 09/18/20 05:01 Absolute Eos (auto) 0.1 10^3/uL (0.0-0.6) 09/18/20 05:01 Absolute Basos (auto) 0.1 10^3/uL (0.0-0.2) 09/18/20 05:01 Total Counted 100 09/15/20 04:23 Seg Neutrophils % 76.5 % (42-78) 09/18/20 05:01 Seg Neuts % (Manual) 87 % (42-78) H 09/15/20 04:23 Band Neutrophils % 1 % (3-5) L 09/15/20 04:23 Lymphocytes % (Manual) 6 % (13-45) L 09/15/20 04:23 Monocytes % (Manual) 6 % (3-13) 09/15/20 04:23 Eosinophils % (Manual) 0 % (0-6) 09/15/20 04:23 Basophils % (Manual) 0 % (0-2) 09/15/20 04:23 Abs Neuts (Manual) 14.2 10^3/uL (1.7-8.2) H 09/15/20 04:23 Abs Lymphs (Manual) 1.0 10^3/uL (0.5-4.7) 09/15/20 04:23 Abs Monocytes (Manual) 1.0 10^3/uL (0.1-1.4) 09/15/20 04:23 Absolute Eos (Manual) 0.0 10^3/uL (0.0-0.6) 09/15/20 04:23 Abs Basophils (Manual) 0.0 10^3/uL (0.0-0.2) 09/15/20 04:23 Toxic Vacuolation PRESENT 09/15/20 04:23 Platelet Comment ADEQUATE 09/15/20 04:23 RBC Morph Comment NORMO-CYTIC/CHROMIC 09/15/20 04:23 Sodium 135.9 mmol/L (137-145) L 09/19/20 05:17 Potassium 3.0 mmol/L (3.6-5.0) L* 09/19/20 05:17 Chloride 98 mmol/L (98-107) 09/19/20 05:17 Carbon Dioxide 31 mmol/L (22-30) H 09/19/20 05:17 Anion Gap 7 (5-19) 09/19/20 05:17 BUN 17 mg/dL (7-20) 09/19/20 05:17 Creatinine 0.60 mg/dL (0.52-1.25) 09/19/20 05:17 Est GFR ( Amer) > 60 (>60) 09/19/20 05:17 Est GFR (MDRD) Non-Af > 60 (>60) 09/19/20 05:17 Glucose 150 mg/dL (75-110) H 09/19/20 05:17 POC Glucose 317 mg/dL (70-110) H 09/19/20 11:01 Hemoglobin A1c % 10.3 % (4.7-6.0) H 09/15/20 04:23 Lactic Acid 1.0 mmol/L (0.7-2.1) 09/18/20 05:01 Calcium 8.5 mg/dL (8.4-10.2) 09/19/20 05:17 Magnesium 2.4 mg/dL (1.6-2.3) H 09/19/20 05:17 Total Bilirubin 0.4 mg/dL (0.2-1.3) 09/13/20 23:30 Direct Bilirubin 0.1 mg/dL (0.0-0.4) 09/13/20 23:30 Neonat Total Bilirubin Not Reportable 09/13/20 23:30 Neonat Direct Bilirubin Not Reportable 09/13/20 23:30 Neonat Indirect Bili Not Reportable 09/13/20 23:30 AST 16 U/L (14-36) 09/13/20 23:30 ALT 16 U/L (<35) 09/13/20 23:30 Alkaline Phosphatase 178 U/L (38-126) H 09/13/20 23:30 NT-Pro-B Natriuret Pep 542 pg/mL (<125) H 09/16/20 07:16 Total Protein 7.2 g/dL (6.3-8.2) 09/13/20 23:30 Albumin 4.3 g/dL (3.5-5.0) 09/13/20 23:30 Lipase 66.1 U/L (23-300) 09/13/20 23:30 Urine Color STRAW 09/16/20 11:30 Urine Appearance CLEAR 09/16/20 11:30 Urine pH 6.0 (5.0-9.0) 09/16/20 11:30 Ur Specific [place] 1.008 09/16/20 11:30 Urine Protein NEGATIVE mg/dL (NEGATIVE) 09/16/20 11:30 Urine Glucose (UA) 150 mg/dL (NEGATIVE) H 09/16/20 11:30 Urine Ketones NEGATIVE mg/dL (NEGATIVE) 09/16/20 11:30 Urine Blood MODERATE (NEGATIVE) H 09/16/20 11:30 Urine Nitrite NEGATIVE (NEGATIVE) 09/14/20 00:40 Urine Nitrite (Reflex) NEGATIVE (NEGATIVE) 09/16/20 11:30 Urine Bilirubin NEGATIVE (NEGATIVE) 09/16/20 11:30 Urine Urobilinogen NEGATIVE mg/dL (<2.0) 09/16/20 11:30 Ur Leukocyte Esterase TRACE (NEGATIVE) H 09/14/20 00:40 Leukocyte Esterase Rfl NEGATIVE (NEGATIVE) 09/16/20 11:30 Urine WBC (Auto) 2 /HPF 09/14/20 00:40 Urine RBC (Auto) 2 /HPF 09/16/20 11:30 U Hyaline Cast (Auto) 1 /LPF 09/14/20 00:40 Urine Bacteria (Auto) TRACE /HPF 09/14/20 00:40 Urine WBC (Reflex) 1 /HPF 09/16/20 11:30 Squamous Epi Cells Auto <1 /HPF 09/16/20 11:30 Urine Mucus (Auto) RARE /LPF 09/16/20 11:30 Urine Ascorbic Acid NEGATIVE (NEGATIVE) 09/16/20 11:30 SARS-CoV-2 (PCR) NEGATIVE (NEGATIVE) 09/14/20 10:47 09/16/20 07:16 NT-Pro-B Natriuret Pep 542 H Impressions: Abdomen/Pelvis CT 09/13/20 23:22 IMPRESSION: 1. Multiple anterior abdominal wall hernias with the largest being a right supraumbilical anterior abdominal wall hernia. There are some mildly dilated fluid-filled loops of small bowel extending into and out of this hernia with narrowing at adjacent points suggesting developing closed loop obstruction related to this hernia. The fluid and edema within the mesentery associated with this hernia also is worrisome for early incarceration or strangulation of the hernia. Recommend surgical consultation. Dr. Pickard was made aware of this finding and recommendation by myself by phone on 09/14/2020 at 2:02 AM eastern time. 2. Diverticulosis. 3. Cholelithiasis. Abdomen/Pelvis CT 09/14/20 02:10 IMPRESSION: 1. Oral contrast on this examination is essentially noncontributory as only a small amount of oral contrast is noted in the stomach. There has been some decrease in fluid distention of loop of small bowel in the midabdomen but there is worsening edema within the small bowel mesentery associated with this loop of small bowel. Still favor component of a closed loop obstruction and possibly incarceration or strangulation related to the patient's right-sided anterior abdominal wall hernia. Again would recommend surgical consultation. 2. Otherwise stable exam. Chest X-Ray 09/16/20 00:00 IMPRESSION: Is cannot exclude limited airspace disease in the medial right base, atelectasis versus pneumonia. There is no evidence of fluid overload.
--- NOTE | 2020-09-19 15:30 | PDOC PROGRESS REPORT ---
Subjective Subjective:: KAJAL TAMEZ is a 60 year old female with past medical history significant for HTN, T2DM, asthma, perforated colon status post partial colectomy then takedown who presents with a 2-day history of progressive severe abdominal pain with nausea and vomiting. Patient has not followed with a physician regularly in many years she states. She has not had any medications at home reportedly. Patient is admitted to the general surgery service for incarcerated ventral hernia. Patient's blood pressure significantly elevated with systolics in the 180s on admission. According to patient, she is extremely allergic to LENNOX inhibitor's including lisinopril and she experienced angioedema from this in the past. Patient also states she is unable to tolerate clonidine in any form due to causing her to have whole body pain the last time she was given it. We are very limited in her blood pressure control but I have ordered as needed IV labetalol as well as scheduled IV Lasix. We are unable to use a clonidine patch or captopril IV due to aforementioned allergy/intolerance to these meds. Patient need to be started on aggressive oral blood pressure management once he is cleared to take medications by mouth by general surgery. Blood sugars also uncontrolled and I have started her on sliding scale insulin and Accu-Cheks. Patient agrees that benefits outweigh the risks of proceeding with surgery. 09/15/2020 Patient underwent surgery to repair her ventral hernia overnight. Patient states procedure went very well. Patient states her abdominal pain that caused her admission is now significantly improved and she only has pain at the surgical site which is expected postop. She still has an NG tube placed cur rently and this will remain in place until general surgery clears it to be removed and then patient can start a diet. We will be watching to see if her bowels begin moving in the near future. Blood sugar is significantly elevated and Lantus has been added in addition to her sliding scale insulin. Her A1c was 10.3. She has no new complaints. 09/16/2020 Patient not passing gas or having bowel movements yet. NG tube remains per general surgery orders. Patient's blood pressure is quite high and I spoke with Dr. Mcgrath today regarding this. I do not believe she is dehydrated but rather volume overloaded and we have stopped IV fluids and I have added back to furosemide. I have changed IV labetalol to scheduled as well. Red blood cells are higher though this could simply be a stress reaction from an invasive surgery. There are no other findings consistent with developing infection. If patient develops a fever would recommend starting her on broad-spectrum antibiotics. Chest x-ray ordered which showed questionable airspace disease in the right medial base. Lungs are clear on exam. Mild peripheral edema. If patient has dry mouth, she can have ice chips. UA did not show evidence of infection. 09/17/2020 Patient's WBC has dropped significantly down to 13 from previous value without any specific intervention for possible infection. Likely high white blood cell count was due to stress from surgery. I do not see any specific signs that the patient has an infection. General surgery started the patient on antibiotics. Patient was started on clear liquid diet as she is passing some flatus. I have transitioned her blood pressure medications to oral and I have adjusted her Lantus to a higher dose to account for her elevated blood glucose. Patient needs a great deal of primary care follow-up after discharge. She may need to get this at the [facility] if she does not have insurance. In general, patient seems to be steadily improving each day that I see her. Other than some expected abdominal pain at her surgical site, she has no new complaints. 09/18/2020 Patient seems to be doing much better today. Her blood pressure is substantially improved with systolics now in the 130s. This is probably the best her blood pressure has been in many months. Started metoprolol. Staple line from patient's surgery looks to be doing quite well there is no evidence of infection overlying this wound. Her white blood cells are trending down. Her potassium is low we will replete this. Blood sugar is elevated and I have increased her Lantus appropriately. Possible discharge on Sunday per patient's discussion with general surgery. 09/19/2020 They seems to be doing well today. She has very little drainage from her abdomen MANNY drain. She states that her general surgeon plans to remove this in the office later. Potassium repleting we will recheck BMP today. If her potassium has come up to approximately normal number, she can be discharged home with close follow-up with the PCP and her general surgeon. Reason For Visit: VENTRAL HERNIA Physical Exam Vital Signs: Temp Pulse Resp BP Pulse Ox 97.8 F 95 19 142/80 H 96 09/19/20 10:59 09/19/20 10:59 09/19/20 10:59 09/19/20 10:59 09/19/20 10:59 Intake & Output 09/18/20 09/19/20 09/20/20 06:59 06:59 06:59 Intake Total 229 340 580 Output Total 200 20 Balance 29 320 580 Weight 98.5 kg 100.4 kg Exam: General appearance: PRESENT: no acute distress, well-developed, well-nourished, morbidly obese with BMI of 36, states she would like to go home today Head exam: PRESENT: atraumatic, normocephalic Eye exam: PRESENT: conjunctiva pink. ABSENT: scleral icterus Mouth exam: PRESENT: moist Respiratory exam: PRESENT: clear to auscultation tiffanie. ABSENT: rales, rhonchi, wheezes Cardiovascular exam: PRESENT: RRR. ABSENT: diastolic murmur, rubs, systolic murmur GI/Abdominal exam: PRESENT: normal bowel sounds, soft. Healing surgical site that is mildly tender with binder in place; absent: Guarding, mass, organolmegaly, rebound Neurological exam: PRESENT: alert, awake, oriented to person, oriented to place, oriented to time, oriented to situation Psychiatric exam: PRESENT: appropriate affect, normal mood Skin exam: PRESENT: dry, intact, warm Results Laboratory Results: 09/18/20 05:01 09/19/20 14:30 09/19/20 09/19/20 09/19/20 05:17 05:17 14:30 Sodium 135.9 L 134.2 L Potassium 3.0 L* 3.7 Chloride 98 100 Carbon Dioxide 31 H 25 Anion Gap 7 9 BUN 17 16 Creatinine 0.60 0.62 Est GFR ( Amer) > 60 > 60 Glucose 150 H 180 H Calcium 8.5 8.2 L Magnesium 2.4 H 09/16/20 07:16 NT-Pro-B Natriuret Pep 542 H Impressions: Abdomen/Pelvis CT 09/14/20 02:10 IMPRESSION: 1. Oral contrast on this examination is essentially noncontributory as only a small amount of oral contrast is noted in the stomach. There has been some decrease in fluid distention of loop of small bowel in the midabdomen but there is worsening edema within the small bowel mesentery associated with this loop of small bowel. Still favor component of a closed loop obstruction and possibly incarceration or strangulation related to the patient's right-sided anterior abdominal wall hernia. Again would recommend surgical consultation. 2. Otherwise stable exam. Chest X-Ray 09/16/20 00:00 IMPRESSION: Is cannot exclude limited airspace disease in the medial right base, atelectasis versus pneumonia. There is no evidence of fluid overload. Assessment and Plan - Diagnosis (1) Hernia, ventral, with obstruction Is this a current diagnosis for this admission?: Yes (2) HTN (hypertension) Is this a current diagnosis for this admission?: Yes (3) T2DM (type 2 diabetes mellitus) Qualifiers: Diabetes mellitus truck terminal manager insulin use: without truck terminal manager use Diabetes mellitus complication status: without complication Qualified Code(s): E11.9 - Type 2 diabetes mellitus without complications Is this a current diagnosis for this admission?: Yes (4) History of partial colectomy Is this a current diagnosis for this admission?: Yes (5) Asthma Qualifiers: Asthma severity: mild Asthma persistence: intermittent Asthma complication type: uncomplicated Qualified Code(s): J45.20 - Mild intermittent asthma, uncomplicated Is this a current diagnosis for this admission?: Yes (6) History of angioedema Is this a current diagnosis for this admission?: Yes (7) Leukocytosis Qualifiers: Leukocytosis type: unspecified Qualified Code(s): D72.829 - Elevated white blood cell count, unspecified Is this a current diagnosis for this admission?: Yes (8) Hypokalemia Is this a current diagnosis for this admission?: Yes Plan: Replete Trend BMP - Plan Summary Summary: The patient is a morbidly obese 60-year-old female who was admitted on September 14, 2020 with an incarcerated umbilical hernia. She went to surgery on the same day with hernia repair with biologic mesh. The patient was then admitted to the floor where she slowly improved and her diet was advanced and she was discharged home on September 19, 2020 in satisfactory conditions. Her drain was removed, her abdomen was soft, the abdominal wound was clean, dry, and intact. She was given appointment with a surgical office in 2 weeks, instructed no heavy lifting pushing the straining for about 3 months, shower only until matty are in place. Follow-up per primary care physician. The patient was given additional prescription medications as per the hospitalist. Patient was instructed to take Tylenol and Aleve as needed for pain. (1) Hernia, ventral, with obstruction Is this a current diagnosis for this admission?: Yes Plan: Seen on CT abdomen/pelvis General surgery is the primary admitting service Status post OR for hernia repair on 09/14 Nausea/vomiting/abdominal pain on admission Pain management Bowels slow to pass gas or have bowel movement postop, NG tube removed by general surgery Clear liquid diet started by general surgery on 09/17, diet advanced successfully General surgery planning to discharge Okay to discharge provided potassium is normalized (2) HTN (hypertension) Is this a current diagnosis for this admission?: Yes Plan: Not any medications prior to admission Start IV labetalol scheduled and scheduled IV Lasix for BP management Patient is allergic to LENNOX inhibitors which cause angioedema as well as clonidine which causes whole body pain reportedly BP meds transitioned to oral, added nifedipine/chlorthalidone/Cardura/metoprolo l; stopped scheduled IV labetalol, left this on as-needed basis in case she starts vomiting and can no longer take oral meds Significant improvement in BP control since admission (3) T2DM (type 2 diabetes mellitus) Qualifiers: Diabetes mellitus nursing home insulin use: without truck terminal manager use Diabetes mellitus complication status: without complication Qualified Code(s): E11.9 - Type 2 diabetes mellitus without complications Is this a current diagnosis for this admission?: Yes Plan: Sliding scale insulin, Accu-Cheks A1c 10.3, very poorly controlled Lantus added and dose increased multiple times; will need insulin at discharge Needs close follow-up outpatient with PCP (4) History of partial colectomy Is this a current diagnosis for this admission?: Yes Plan: Status post partial colectomy for perforated colon, later had takedown of colostomy (5) Asthma Qualifiers: Asthma severity: mild Asthma persistence: intermittent Asthma complication type: uncomplicated Qualified Code(s): J45.20 - Mild intermittent asthma, uncomplicated Is this a current diagnosis for this admission?: Yes Plan: Uses albuterol intermittently Stable (6) History of angioedema Is this a current diagnosis for this admission?: Yes Plan: Due to LENNOX inhibitor in the past, do not restart - Time Time Spent with patient: 25-34 minutes Medications reviewed and adjusted accordingly: Yes Anticipated Discharge Disposition: Home, Self Care Anticipated Discharge Timeframe: within 24 hours
[2020-09-19 17:02] LABS: ANION GAP 8 (5-19); BLOOD UREA NITROGEN 16 mg/dL (7-20); CALCIUM 8.4 mg/dL (8.4-10.2); CARBON DIOXIDE 27 mmol/L (22-30); CHLORIDE 99 mmol/L (98-107); GLUCOSE 160 mg/dL (75-110); POTASSIUM 3.8 mmol/L (3.6-5.0)
[2020-09-19 17:16] VITALS: BP 157/91
== END 2020-09-19 18:30 | disposition home health service (06) | DRG 355 ==
LOC: ER 23:04 → EH 09-14 10:44 → 4N 09-14 15:16
PROVIDERS: ATTEND Surgery
PROC: 0WUF0JZ Supplement Abdominal Wall with Synthetic Substitute, Open Approach (ICD-10-PCS; principal; 2020-09-14 17:45)
DX: K42.0 Umbilical hernia with obstruction, without gangrene (principal); E66.01 Morbid (severe) obesity due to excess calories; E11.9 Type 2 diabetes mellitus without complications; D72.829 Elevated white blood cell count, unspecified; E87.6 Hypokalemia; I10 Essential (primary) hypertension; J45.20 Mild intermittent asthma, uncomplicated; K21.9 Gastro-esophageal reflux disease without esophagitis; Z90.49 Acquired absence of other specified parts of digestive tract; Z79.4 Long term (current) use of insulin; Z79.899 Other long term (current) drug therapy; Z88.8 Allergy status to other drugs, medicaments and biological substances; Z83.3 Family history of diabetes mellitus; Z68.36 Body mass index [BMI] 36.0-36.9, adult
CPT/HCPCS: 00840; 36415; 71045; 74176; 74177; 80048; 80053; 81001; 82962; 83036; 83605; 83690; 83735; 83880; 85025; 87635; 93005; 93010; 93306; 94799; 96361; 96374; 96375; 96376; 99140; 99285; C1781; C9803; J0330; J0690; J1100; J1644; J1815; J1940; J2250; J2270; J2405; J2704; J2765; J3010; J3480; J3490; J7060; J7120; J7121; S0119